=== PATIENT | female | born 1965 | race Caucasian/White ===

== ENCOUNTER 2019-01-16 16:54 | Emergency (ER) | payer OTHER ==
[~2019-01-16] VITALS: Ht 175.3 cm; Wt 86.2 kg
--- OUTSIDE RECORDS SUMMARY | ~2019-01-16 | XMS | Clinical Summary ---
Demographics + + + | Address | [address] | | | [place] [address] | + + + | Home Phone | | + + + | Preferred Language | Unknown | + + + | Marital Status | | + + + | Hoahaoism Affiliation | 1009 | + + + | Race | Unknown | + + + | Ethnic Group | Unknown | + + + Author + + + | Author | [facility] | + + + | Organization | [facility] | + + + | Address | Unknown | + + + | Phone | Unavailable | + + + Support + + + + + | Name | Relationship | Address | Phone | + + + + + | Ana M Ware | ECON | [address] | | | [place] | | [place] | | | | | [address] | | + + + + + | Detailed,Message | ECON | Unknown | | + + + + + Care Team Providers + +------+ + | Care Hull And Deck Remover Name | Role | Phone | + +------+ + | Nathan Peguero MD | PP | Unavailable | + +------+ + Allergies + + + + + + | Active Allergy | Reactions | Severity | Noted | Comments | | | | | Date | | + + + + + + | Aspirin | Nausea and Vomiting | Low | 12/06/19 | | | | | | 15 | | + + + + + + | Chlorhexidine | Hives | High | 03/07/20 | | | Gluconate | | | 15 | | + + + + + + | Codeine | Nausea and Vomiting | Low | 12/06/19 | | | | | | 15 | | + + + + + + | Hydroxyzine Hcl | Rash | Medium | 03/07/20 | | | | | | 15 | | + + + + + + | Iodinated Diagnostic | Hives | High | 02/19/20 | | | Agents | | | 15 | | + + + + + + | Povidone Iodine | Hives, Rash | High | 12/06/19 | | | | | | 15 | | + + + + + + | Penicillins | Hives, Rash | High | 12/06/19 | | | | | | 15 | | + + + + + + Current Medications + + +--------+---------+------+------+-------+ | Prescription | Sig. | Disp. | Refills | Star | End | Statu | | | | | | t | Date | s | | | | | | Date | | | + + +--------+---------+------+------+-------+ | pregabalin | Take 75 mg by mouth | | | | | Activ | | (LYRICA) 75 MG | 4 (four) times | | | | | e | | capsule | daily. 150mg | | | | | | + + +--------+---------+------+------+-------+ | levothyroxine | Take 112 mcg by | | | | | Activ | | (SYNTHROID) 112 MCG | mouth every morning | | | | | e | | tablet | before breakfast. | | | | | | + + +--------+---------+------+------+-------+ | diazepam (VALIUM) | Take 1 tablet by | 60 | 1 | 07/1 | | Activ | | 5 MG tablet | mouth every 6 (six) | tablet | | 4/20 | | e | | | hours as needed for | | | 15 | | | | | Muscle spasms. | | | | | | + + +--------+---------+------+------+-------+ | oxyCODONE | Take two tablets | 168 | 0 | 07/1 | | Activ | | (ROXICODONE) 15 MG | every four hours as | tablet | | 7/20 | | e | | immediate release | needed for pain. | | | 15 | | | | tablet | | | | | | | + + +--------+---------+------+------+-------+ | hydrOXYzine | | | | 02/19 | | Activ | | (ATARAX) 25 MG | | | | 3/ | | e | | tablet | | | | 15 | | | + + +--------+---------+------+------+-------+ Active Problems + + + | Problem | Noted Date | + + + | Lumbar stenosis | 01/21/2015 | + + + | Spondylolisthesis, acquired | 01/21/2015 | + + + Encounters +--------+ + + + + | Date | Type | Specialty | Care Team | Description | +--------+ + + + + | 12/18/ | Documentati | | Juan Antonio Burr MD | | | 2018 | on Only | | | | +--------+ + + + + from Last 3 Months Family History + + +------+ + | Medical History | Relation | Name | Comments | + + +------+ + | Aneurysm | | | | + + +------+ + | Cancer | | | | + + +------+ + | Heart disease | | | | + + +------+ + | Hypertension | | | | + + +------+ + | Other (see comments) | | | BRAIN TUMOR | + + +------+ + | Stroke | | | | + + +------+ + | Cancer | | | | + + +------+ + + +------+--------+ + | Relation | Name | Status | Comments | + +------+--------+ + Social History + +-------+ +--------+ + | Tobacco Use | Types | Packs/Day | Years | Date | | | | | Used | | + +-------+ +--------+ + | Former Smoker | | 1 | 15 | Quit: 10/20/2014 | + +-------+ +--------+ + + +---+---+---+ | Smokeless Tobacco: | | | | | Never Used | | | | + +---+---+---+ + + +---------+ + | Alcohol Use | Drinks/We | oz/Week | Comments | | | ek | | | + + +---------+ + | No | | | | + + +---------+ + + + + | Sex Assigned at | Date Recorded | | | | + + + | Not on file | | + + + Last Filed Vital Signs + + + + | Vital Sign | Reading | Time Taken | + + + + | Blood Pressure | 103/50 | 02/28/2015 10:51 AM PDT | + + + + | Pulse | 82 | 02/28/2015 10:51 AM PDT | + + + + | Temperature | 37 C (98.6 F) | 02/28/2015 10:51 AM PDT | + + + + | Respiratory Rate | 16 | 02/28/2015 10:51 AM PDT | + + + + | Oxygen Saturation | 96% | 02/28/2015 10:51 AM PDT | + + + + | Inhaled Oxygen | - | - | | Concentration | | | + + + + | Weight | 98 kg (216 lb) | 09/04/2015 1:11 PM PST | + + + + | Height | 176.5 cm (5' 9.5") | 09/04/2015 1:11 PM PST | + + + + | Body Mass Index | 31.44 | 09/04/2015 1:11 PM PST | + + + + Plan of Treatment + + + + + | Health Maintenance | Due Date | Last Done | Comments | + + + + + | Vaccine: | | | | | Dtap/Tdap/Td (1 - | 2 | | | | Tdap) | | | | + + + + + | Cervical Cancer | | | | | Screening (Pap) | 3 | | | + + + + + | Vaccine: Zoster (1 | | | | | of 2) | 3 | | | + + + + + | Vaccine: Influenza | | | | | (Season Ended) | 9 | | | + + + + + Implants + +------+--------+ +--------+--------+--------+ | Implanted | Type | Area | Manufacture | Device | Expira | Model | | | | | r | | tion | / | | | | | | Identi | Date | Serial | | | | | | fier | | / Lot | + +------+--------+ +--------+--------+--------+ | Graft 15cc [facility] - | | N/A: | LIFENET | | 10/29/ | [id number] | | [id number]: Qty: | | Spine | TISSUE - | | 2018 | T | | 1 on 2015 by Leno, | | Lumbar | LFTS | | | /05-19 | | MD Juan Antonio | | | | | | [phone] | | | | | | | | 6 / | + +------+--------+ +--------+--------+--------+ | Screw Mod Creo Amp 6.5x50 - | | N/A: | GLOBUS | | | 1067.1 | | [id number]: Qty: 2 on | | Spine | MEDICAL - | | | 650 / | | 2015 by Juan Antonio Burr, | | Lumbar | GLBU | | | / | | MD | | | | | | | + +------+--------+ +--------+--------+--------+ | Screw Mod Creo Amp 7.5x50 - | | N/A: | GLOBUS | | | 1067.1 | | [id number]: Qty: 2 on | | Spine | MEDICAL - | | | 750 / | | 2015 by Juan Antonio Burr, | | Lumbar | GLBU | | | / | | MD | | | | | | | + +------+--------+ +--------+--------+--------+ | Cap Ami Thrd Creo 5.5 - | | N/A: | GLOBUS | | | 1119.0 | | [id number]: Qty: 4 on | | Spine | MEDICAL - | | | 010 / | | 2015 by Juan Antonio Burr, | | Lumbar | GLBU | | | / | | MD | | | | | | | + +------+--------+ +--------+--------+--------+ | Maria Elenaip Carleenax Thrd Creo Amp | | N/A: | GLOBUS | | | 1119.0 | | 5.5 - [id number]: Qty: | | Spine | MEDICAL - | | | 110 / | | 4 on 2015 by Leno, | | Lumbar | GLBU | | | / | | MD Juan Antonio | | | | | | | + +------+--------+ +--------+--------+--------+ | Imp Spn Gurmeet Crv Ti 5.5x35mm - | | N/A: | GLOBUS | | | 1119.7 | | [id number]: Qty: 1 on | | Spine | MEDICAL - | | | 035 / | | 2015 by Leno, | | Lumbar | GLBU | | | / | | MD Juan Antonio | | | | | | | + +------+--------+ +--------+--------+--------+ | Spcr Rise [id number] 10-17mm 15d | | N/A: | GLOBUS | | | 193.14 | | - [id number]: Qty: 1 | | Spine | MEDICAL - | | | 2 / / | | on 2015 by Leno, | | Lumbar | GLBU | | | | | MD Juan Antonio | | | | | | | + +------+--------+ +--------+--------+--------+ | Imp Spn Gurmeet Crv Ti 5.5x40mm - | | N/A: | GLOBUS | | | 1119.7 | | [id number]: Qty: 2 on | | Spine | MEDICAL - | | | 040 / | | 2015 by Leno, | | Lumbar | GLBU | | | / | | MD Juan Antonio | | | | | | | + +------+--------+ +--------+--------+--------+ Results Not on filefrom Last 3 Months Insurance + +--------+ +------+-------+ + | Payer | Benefi | Subscriber | Type | Phone | Address | | | t Plan | ID | | | | | | / | | | | | | | Group | | | | | + +--------+ +------+-------+ + | MEDICAID | MEDICA | [id number] | | | [address] | | | ID | | | | [place] | | | [place] | | | | [address] | + +--------+ +------+-------+ + + +--------+ +--------+ + + | Guarantor Name | Accoun | Relation to | Date | Phone | Billing Address | | | t Type | Patient | of | | | | | | | | | | + +--------+ +--------+ + + | ANA M WARE | Person | Self [birth year] | Work: | [address] | | | mason/David | | 1965 | [phone] [place] | | | [place] | | | [address]: | [phone] | | | | | | | | | | | | [phone] | | | | | | | [phone] | | + +--------+ +--------+ + +
--- OUTSIDE RECORDS SUMMARY | ~2019-01-16 | XMS | Clinical Summary ---
Demographics + + + | Address | [address] | | | [place] [address] | + + + | Home Phone | | + + + | Preferred Language | Unknown | + + + | Marital Status | | + + + | Mormonism Affiliation | 1009 | + + + | Race | Unknown | + + + | Ethnic Group | Unknown | + + + Author + + + | Author | [facility] | | | and [place] | + + + | Organization | [facility] | | | and [place] | + + + | Address | Unknown | + + + | Phone | Unavailable | + + + Support + + + + + | Name | Relationship | Address | Phone | + + + + + | Brady Ware | ECON | [address] | | | | | [place] | | | | | [address] | | + + + + + Care Team Providers + +------+ + | Care Programming Engineer Name | Role | Phone | + +------+ + PP | Unavailable | + +------+ + Allergies + + + +--------+ + | Active Allergy | Reactions | Severity | Noted | Comments | | | | | Date | | + + + +--------+ + | Iodine | | | | | + + + +--------+ + | Penicillins | | | | | + + + +--------+ + Medications + + + +---------+------+------+-------+ | Medication | Sig | Dispensed | Refills | Star | End | Statu | | | | | | t | Date | s | | | | | | Date | | | + + + +---------+------+------+-------+ | oxyCODONE | 1/2 tablet every 2 | | 0 | 09/1 | | Activ | | (ROXICODONE) 15 mg | hours up to 5 times | | | 3/20 | | e | | immediate release | a day if needed | | | 12 | | | | tablet | | | | | | | + + + +---------+------+------+-------+ | eszopiclone | | | 0 | 09/1 | | Activ | | (ESZOPICLONE) 3 MG | | | | 3/20 | | e | | TABS | | | | 12 | | | + + + +---------+------+------+-------+ | peginterferon | inject 0.5 ml | | 0 | 09/1 | | Activ | | lissa-2a (PEGASYS) | subcutaneously once | | | 3/20 | | e | | 180 MCG/ML injection | weekly | | | 12 | | | + + + +---------+------+------+-------+ | ribavirin | Take 600 mg by mouth | | 0 | 09/1 | | Activ | | (RIBAPAK) 600 MG | 2 times daily. | | | 3/20 | | e | | tablet | | | | 12 | | | + + + +---------+------+------+-------+ | HYDROmorphone | Take 4 mg by mouth | | 0 | 09/1 | | Activ | | (DILAUDID) 4 MG | Twice daily as | | | 3/20 | | e | | tablet | needed. | | | 12 | | | + + + +---------+------+------+-------+ Active Problems + + + | Problem | Noted Date | + + + | HEPATITIS C | | + + + + + | Overview: ICD-10 Record update | + + + +---+ | DEGENERATIVE DISC DISEASE, LUMBAR SPINE | | + +---+ Social History + +-------+ +--------+------+ | Tobacco [...] on file | | + + + + + + + | Job Start Date | Occupation | Industry | + + + + | Not on file | Not on file | Not on file | + + + + + + + + | Travel History | Travel Start | Travel End | + + + + + + | No recent travel history available. | + + Last Filed Vital Signs + + + + | Vital Sign | Reading | Time Taken | + + + + | Blood Pressure | 124/90 | 05/27/2010 0000 PDT | + + + + | Pulse | - | - | + + + + | Temperature | - | - | + + + + | Respiratory Rate | - | - | + + + + | Oxygen Saturation | - | - | + + + + | Inhaled Oxygen | - | - | | Concentration | | | + + + + | Weight | 94.8 kg (209 lb) | 05/27/2010 PDT | + + + + | Height | 177.8 cm (5' 10") | 05/27/2010 PDT | + + + + | Body Mass Index | 29.99 | 05/27/2010 PDT | + + + + Plan of [...] | | + + + + + Results Not on filefrom Last 3 Months
--- OUTSIDE RECORDS SUMMARY | ~2019-01-16 | XMS | Encounter Summary ---
Demographics + + + | Address | [address] | | | [place] [address] | + + + | Home Phone | | + + + | Preferred Language | Unknown | + + + | Marital Status | | + + + | Jew Affiliation | 1009 | + + + | Race | Unknown | + + + | Ethnic Group | Unknown | + + + Author + + + | Author | [facility] | + + + | Organization | [facility] | + + + | Address [...] [place] | | | | | [address] | | + + + + + | Detailed,Message | ECON | Unknown | | + + + + + Care Team Providers + +------+ + | Care Salesperson Toy Trains And Accessories Name | Role | Phone | + +------+ + | Nathan Peguero MD | PCP | Unavailable | + +------+ + Encounter Details +--------+ + + + + | Date | Type | Department | Care Team | Description | +--------+ + + + + | 12/18/ | Documentati | [facility] | Juan Antonio Burr MD | | | 2019 | on Only | [facility] | [address] | | | | | [address] | [address] [place], [place] | | | | | [place], [place] | [address] | | | | | [address] | | | | | | [phone] | | | +--------+ + + + + Social History + +-------+ +--------+ + [...] on file | | + + + as of this encounter Plan of Treatment Not on fileas of this encounter Visit Diagnoses Not on filein this encounter"
--- OUTSIDE RECORDS SUMMARY | ~2019-01-16 | XMS | Clinical Summary ---
Demographics + + + | Address | [address] | | | [place] [address] | + + + | Home Phone | | + + + | Preferred Language | Unknown | + + + | Marital Status | | + + + | Religion Affiliation | 1009 | + + + | Race | Unknown | + + + | Ethnic Group | Unknown | + + + Author + + + | Author | [facility] | + + + | Organization | [facility] | + + + | Address [...] [place] | | | | | [address] | | + + + + + | Detailed,Message | ECON | Unknown | | + + + + + Care Team Providers + +------+ + | Care Sourcing Analyst Name | Role | Phone | + [...] | + +------+--------+ +--------+--------+--------+ | Graft 15cc [facility] - | | N/A: | LIFENET | | 10/29/ | [id number] | | [id number]: Qty: | | Spine | TISSUE - [...] GLOBUS | | | 1067.1 | | [id number]: Qty: 2 on | | Spine | MEDICAL - | | | 650 / | | 2015 by Juan Antonio Burr, | | Lumbar | GLBU | | | / | | MD | | | | | | | + +------+--------+ +--------+--------+--------+ | Screw Mod Creo Amp 7.5x50 - | | N/A: | GLOBUS | | | 1067.1 | | [id number]: Qty: 2 on | | Spine | MEDICAL - | | | 750 / | | 2015 by Juan Antonio Burr, | | Lumbar | GLBU | | | / | | MD | | | | | | | + +------+--------+ +--------+--------+--------+ | Cap Ami Thrd Creo 5.5 - | | N/A: | GLOBUS | | | 1119.0 | | [id number]: Qty: 4 on | | Spine | MEDICAL - | | | 010 / | | 2015 by Juan Antonio Burr, | | Lumbar | GLBU | | | / | | MD | | | | | | | + +------+--------+ +--------+--------+--------+ | Maria Elenaip Carleenax Thrd Creo Amp | | N/A: | GLOBUS | | | 1119.0 | | 5.5 - [id number]: Qty: | | Spine | MEDICAL - | | | 110 / | | 4 on 2015 by Leno, | | Lumbar | GLBU | | | / | | MD Juan Antonio | | | | | | | + +------+--------+ +--------+--------+--------+ | Imp Spn Gurmeet Crv Ti 5.5x35mm - | | N/A: | GLOBUS | | | 1119.7 | | [id number]: Qty: 1 on | | Spine | MEDICAL - | | | 035 / | | 2015 by Leno, | | Lumbar | GLBU | | | / | | MD Juan Antonio | | | | | | | + +------+--------+ +--------+--------+--------+ | Spcr Rise [id number] 10-17mm 15d | | N/A: | GLOBUS | | | 193.14 | | - [id number]: Qty: 1 | | Spine | MEDICAL - | | | 2 / / | | on 2015 by Leno, | | Lumbar | GLBU | | | | | MD Juan Antonio | | | | | | | + +------+--------+ +--------+--------+--------+ | Imp Spn Gurmeet Crv Ti 5.5x40mm - | | N/A: | GLOBUS | | | 1119.7 | | [id number]: Qty: 2 on | | Spine | [...] +------+-------+ + | MEDICAID | MEDICA | [id number] | | | [address] | | | ID | | | | [place] | | | [place] | | | | [address] | + +--------+ +------+-------+ + + +--------+ [...] | | | [place] | | | [address]: | [address] | | | | | | | | | | | | | [phone] | | | | | | | [phone] | | + +--------+ +--------+ + +
--- OUTSIDE RECORDS SUMMARY | ~2019-01-16 | XMS | Clinical Summary ---
Demographics + + + | Address | [address] | | | [place] [address] | + + + | Home Phone | | + + + | Preferred Language | Unknown | + + + | Marital Status | | + + + | Buddhism Affiliation | 1009 | + + + | Race | Unknown | + + + | Ethnic Group | Unknown | + + + Author + + + | Author | [facility] | | | and [place] | + + + | Organization | [facility] | | | and [...] [place] | | | | | [address] | | + + + + + Care Team Providers + +------+ + | Care Sailing Officer Name | Role | Phone | + [...]
--- OUTSIDE RECORDS SUMMARY | ~2019-01-16 | XMS | Encounter Summary ---
Demographics + + + | Address | [address] | | | [place] [address] | + + + | Home Phone | | + + + | Preferred Language | Unknown | + + + | Marital Status | | + + + | Latter Day Affiliation | 1009 | + + + | Race | Unknown | + + + | Ethnic Group | Unknown | + + + Author + + + | Author | [facility] | + + + | Organization | [facility] | + + + | Address [...] [place] | | | | | [address] | | + + + + + | Detailed,Message | ECON | Unknown | | + + + + + Care Team Providers + +------+ + | Care Spine Surgeon Name | Role | Phone | + +------+ + | Nathan Peguero MD | PCP | Unavailable | + +------+ + Encounter Details +--------+ + + + + | Date | Type | Department | Care Team | Description | +--------+ + + + + | 12/18/ | Documentati | [facility] | Juan Antonio Burr MD | | | 2019 | on Only | [facility] | [address] | | | | | [address] | [address] [place], [place] | | | | | [place], [place] | [address] | | | | | [address] | | | | | | [phone] | | | +--------+ + + + [...]
[~2019-01-16 16:54] MED LIST: ANAFRANIL75 MG PO; CLINDAMYCIN HC150 MG PO; CLOMIPRAMINE HC50 MG PO; DIAZEPAM5 MG PO; GABAPENTIN100 MG PO; HYDROMORPHONE HC4 MG PO; IBUPROFEN600 MG PO; IBUPROFEN800 MG PO; LEVOTHYROXINE75 MCG PO; LYRICA150 MG PO; LYRICA200 MG PO; MEDROL4 M1 PO; NICOTINE PATCH1 EAC1 TD; OXYCODON-ACETA1 EAC2 PO; OXYCODONE HCL15 MG PO; PERCOCET 5-3251 EACH PO; SYNTHROID25 MCG PO; TIZANIDINE HCL4 MG PO; TUMS300 MG PO; XANAX0.5 MG PO; ZOFRAN8 MG PO
--- OUTSIDE RECORDS SUMMARY | 2019-01-16 16:56 | XMS ---
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 Allen has no Care Guidelines for this patient. Bhavin VISIT COUNT (12 MO.) 1 ERIKA Anne TOTAL 1 NOTE: Visits indicate total known visits. ED/C VISIT TRACKING (12 MO.) 01/16/2019 16:54 ERIKA Grover [place] TYPE: Emergency COMPLAINT: - LEFT LEG SWELLING INPATIENT VISIT TRACKING (12 MO.) No inpatient visits to display in this time frame [id number]
[2019-01-16] MEDS ORDERED: IBUPROFEN600 MG PO (17:36)
== END 2019-01-16 18:00 | disposition home or self-care (01) ==
LOC: ED 16:54
DX: M71.22 Synovial cyst of popliteal space [Baker], left knee (principal); Z90.710 Acquired absence of both cervix and uterus; F17.200 Nicotine dependence, unspecified, uncomplicated; Z90.49 Acquired absence of other specified parts of digestive tract; Z88.0 Allergy status to penicillin; Z88.5 Allergy status to narcotic agent; Z88.6 Allergy status to analgesic agent; Z91.041 Radiographic dye allergy status; Z91.048 Other nonmedicinal substance allergy status; Z79.899 Other long term (current) drug therapy
CPT/HCPCS: 93971; 99283-25; J1885

== ENCOUNTER 2019-07-31 07:00 | Day surgery (SDC) | payer OTHER ==
[~2019-07-31] VITALS: Ht 175.3 cm; Wt 76.2 kg
--- NOTE | ~2019-07-31 | OR ---
[facility] [address] [place], [place] [address] Draft DATE OF OPERATION: 07/31/2019 SURGEON: Tim Sifuentes MD PREOPERATIVE DIAGNOSIS: Medial meniscal tear, left knee. POSTOPERATIVE DIAGNOSIS: Medial meniscal tear, left knee. PROCEDURE PERFORMED: Left knee arthroscopy with partial medial meniscectomy. ANESTHESIA: General. SPECIMENS AND COMPLICATIONS: There were no specimens or complications. TOURNIQUET TIME: About 20 minutes. WHAT WAS DONE: The patient was taken to the operating room. After anesthesia was induced and the airway secured, the left lower extremity was positioned, prepped and draped in a routine sterile fashion. A time-out was held with the staff, at which point, we confirmed the patient, the procedure, and the laterality. The leg was then exsanguinated with an Esmarch bandage. Pneumatic tourniquet was inflated to 300 mmHg. A superolateral and anterolateral portal were then created. The outflow cannula was inserted superolaterally and we got out about 35 mL of clear synovial fluid. The arthroscopic cannula was then inserted through a standard anterolateral portal. An anteromedial portal was created using transillumination and localization with a spinal needle. The suprapatellar pouch was unremarkable. The patellofemoral joint showed some degenerative change primarily on the patella, but given the fact she has had two previous patellar procedures, was in remarkably good shape. The medial recess was unremarkable. The medial compartment showed a very small posterior horn of the medial meniscal tear. There were also some areas of grade 2 to grade 3 chondral jacquard loom card changer the weightbearing portion of the medial femoral condyle. Intercondylar notch was unremarkable with an intact ACL. The lateral compartment was completely unremarkable as was the lateral recess. The scope was returned to the medial compartment. A basket forceps was PATIENT NAME: KEIKO FISH OPERATIVE REPORT DATE OF : 61 REPORT #: [id number] PHYSICIAN: TIM SIFUENTES MD PCP: ROB GEIGER MD REPORT IS CONFIDENTIAL AND NOT TO BE RELEASED WITHOUT AUTHORIZATION [facility] [address] [place], [place] [address] Draft introduced and the meniscus tear was completed. We then introduced a 4 mm shaver and gently debrided the edge of the meniscectomy and removed some loose discharge of articular cartilage off the weightbearing portion of the medial femoral condyle. The knee was copiously irrigated and drained. The portals were closed. Sterile dressings applied. The patient is awakened in the recovery room where she arrived in stable condition. Counts were correct and antibiotic protocols were followed. Tim Sifuentes MD WFB/MODL /[id number] Copies: ~ PATIENT NAME: KEIKO FISH OPERATIVE REPORT DATE OF : 61 REPORT #: [id number] PHYSICIAN: TIM SIFUENTES MD PCP: ROB GEIGER MD REPORT IS CONFIDENTIAL AND NOT TO BE RELEASED WITHOUT AUTHORIZATION
[~2019-07-31 07:00] MED LIST changes: +BACLOFEN10 MG PO; +OXYCODONE HCL10 MG PO; +SYNTHROID112 MCG PO
--- NOTE | 2019-07-31 11:53 | NUR ---
07/31/19 1153 Lenora Tristan 1123 PT ARRIVED IN PACU AWAKE WITH OPA IN PLACE. 1125 OPA REMOVED. REORIENTED PT TO PLACE AND TIME. 1135 C/O L KNEE PAIN 7/10. FENTANYL 50MCG GIVEN IVP. 1140 NO CHANGE IN PAIN LEVEL. FENTANYL 50MCG GIVEN IVP. 1148 PAIN DOWN TO 4/10. FENTANYL 50MCG GIVEN IVP. L KNEE ELEVATED AND ICE PLACED. 1150 TAKING SIPS OF WATER AND DEEP BREATHING.
--- NOTE | 2019-07-31 12:21 | NUR ---
PT IS BACK TO DS FROM PACU. SHE HAS ALREADY BEEN UP TO USE THE RESTROOM. SHE IS TOLERATING LIQUIDS AND FOOD. CALL LIGHT WITHIN REACH. NO ADDITIONAL NEEDS AT THIS TIME.
--- NOTE | 2019-07-31 13:30 | NUR ---
LE 1315: PATIENT IS STANDING OUTSIDE OF HER ROOM, DEMANDING SOMEONE BRING HER HER PAPERWORK TO LEAVE OR SHE IS GOING TO PULL HER OWN IV OUT AND WALK OUT OF HERE. PATIENT IS GETTING DRESSED AND RN REMOVES HER IV WHILE SHE IS DOING THIS. PATIENT AGREES TO WAIT FOR DISCHARGE PAPERWORK. DISCHARGE PAPERWORK IS GIVEN TO PATIENT WHILE SHE IS SITTING IN THE WHEELCHAIR IN THE HALLWAY WITH HER DAUGHTER STANDING NEARBY. PATIENT VERBALIZES UNDERSTANDING OF DISCHARGE AND SHE APOLOGIZES FOR "BEING IN A HURRY." PATIENT STATES, "I NEED A SMOKE."
== END 2019-07-31 13:25 | disposition home or self-care (01) ==
LOC: DSVR 07:00 → DS 07:00 → OPS 07:00 → DS 07:45 → OPS 13:25
PROVIDERS: Orthopaedic Surgery
PROC: 0SBD4ZZ Excision of Left Knee Joint, Percutaneous Endoscopic Approach (ICD-10-PCS; principal; 2019-07-31 07:45)
DX: S83.242A Other tear of medial meniscus, current injury, left knee, initial encounter (principal); M54.2 Cervicalgia; G89.29 Other chronic pain; G62.9 Polyneuropathy, unspecified; F17.210 Nicotine dependence, cigarettes, uncomplicated; F41.9 Anxiety disorder, unspecified; K21.9 Gastro-esophageal reflux disease without esophagitis; K76.9 Liver disease, unspecified; C73 Malignant neoplasm of thyroid gland; B19.20 Unspecified viral hepatitis C without hepatic coma; Z88.6 Allergy status to analgesic agent; Z88.8 Allergy status to other drugs, medicaments and biological substances; Z91.041 Radiographic dye allergy status; Z98.1 Arthrodesis status; Z79.899 Other long term (current) drug therapy
CPT/HCPCS: J0690; J1100; J1885; J2405; J2704; J3010; J3301; J7121

== ENCOUNTER 2020-03-16 20:09 | Emergency (ER) | payer BC ==
[~2020-03-16] VITALS: Ht 175.3 cm; Wt 76.2 kg
--- OUTSIDE RECORDS SUMMARY | ~2020-03-16 | XMS | Encounter Summary ---
Demographics + + + | Address | [address] | | | [place] [address] | + + + | Home Phone | | + + + | Preferred Language | Unknown | + + + | Marital Status | | + + + | Scientology Affiliation | 1009 | + + + | Race | Unknown | + + + | Ethnic Group | Unknown | + + + Author + + + | Author | [facility] | | | and [place] | + + + | Organization | [facility] | | | and [place] | + + + | Address | Unknown | + + + | Phone | Unavailable | + + + Support + + + + + | Name | Relationship | Address | Phone | + + + + + | Brady M Jeanie | ECON | [address] | | | | | [place], [place] | | | | | [address] | | + + + + + Care Team Providers + +------+ + | Care Director [employer] Name | Role | Phone | + +------+ + PCP | Unavailable | + +------+ + Encounter Details +--------+ + + + + | Date | Type | Department | Care Team | Description | +--------+ + + + + | 05/03/ | Abstract | [facility] | [facility] | | | 2011 | | Conversion Location | SR | | | | | [address] | | | | | | [place] | | | | | | [address] | | | | | | [phone] | | | +--------+ + + + + Social History + +-------+ +--------+------+ | Tobacco Use | Types | Packs/Day | Years | Date | | | | | Used | | + +-------+ +--------+------+ | Never Assessed | | | | | + +-------+ +--------+------+ + + + | Sex Assigned at | Date Recorded | | | | + + + | Not on file | | + + + documented as of this encounter Last Filed Vital Signs + + + + + | Vital Sign | Reading | Time Taken | Comments | + + + + + | Blood Pressure | 124/90 | 05/27/2010 12:00 AM | | | | | PDT | | + + + + + | Pulse | - | - | | + + + + + | Temperature | - | - | | + + + + + | Respiratory Rate | - | - | | + + + + + | Oxygen Saturation | - | - | | + + + + + | Inhaled Oxygen | - | - | | | Concentration | | | | + + + + + | Weight | 94.8 kg (209 lb) | 05/27/2010 12:00 AM | | | | | PDT | | + + + + + | Height | 177.8 cm (5' 10") | 05/27/2010 12:00 AM | | | | | PDT | | + + + + + | Body Mass Index | 29.99 | 05/27/2010 12:00 AM | | | | | PDT | | + + + + + documented in this encounter Plan of Treatment Not on filedocumented as of this encounter Visit Diagnoses Not on filedocumented in this encounter
--- OUTSIDE RECORDS SUMMARY | ~2020-03-16 | XMS | Encounter Summary ---
Demographics + + + | Address | [address] | | | [place] [address] | + + + | Home Phone | | + + + | Preferred Language | Unknown | + + + | Marital Status | | + + + | Confucianist Affiliation | 1009 | + + + | Race | Unknown | + + + | Ethnic Group | Unknown | + + + Author + + + | Author | [facility] | | | and [place] | + + + | Organization | [facility] | | | and [place] | + + + | Address | Unknown | + + + | Phone | Unavailable | + + + Support + + + + + | Name | Relationship | Address | Phone | + + + + + | Bardy M Jeanie | ECON | [address] | | | | | [place], [place] | | | | | [address] | | + + + + + Care Team Providers + +------+ + | Care It Communications Manager Name | Role | Phone | + +------+ + PCP | Unavailable | + +------+ + Encounter Details +--------+ + + + + | Date | Type | Department | Care Team | Description | +--------+ + + + + | 02/12/ | Hospital | [facility] | Conversion | Pain | | 2014 | Encounter | CONVERSION DEP [address] | Transaction, | | | | | DESTINY MCFADDEN | Provider Unknown | | | | | [place] | [phone] | | | | | [address] | | | | | | [phone] | | | +--------+ + + + [...] + + documented as of this encounter Medications at Time of Discharge + + + +---------+ + + | Medication | Sig | Dispensed | Refills | Start | End Date | | | | | | Date | | + + + +---------+ + + | eszopiclone | | | 0 | 05/04/20 | | | (ESZOPICLONE) 3 MG | | | | 12 | | | TABS | | | | | | + + + +---------+ + + | HYDROmorphone | Take 4 mg by mouth | | 0 | 05/04/20 | | | (DILAUDID) 4 MG | Twice daily as | | | 12 | | | tablet | needed. | | | | | + + + +---------+ + + | oxyCODONE | 1/2 tablet every 2 | | 0 | 05/04/20 | | | (ROXICODONE) 15 mg | hours up to 5 times | | | 12 | | | immediate release | a day if needed | | | | | | tablet | | | | | | + + + +---------+ + + | peginterferon | inject 0.5 ml | | 0 | 05/04/20 | | | lissa-2a (PEGASYS) | subcutaneously once | | | 12 | | | 180 MCG/ML injection | weekly | | | | | + + + +---------+ + + | ribavirin | Take 600 mg by mouth | | 0 | 05/04/20 | | | (RIBAPAK) 600 MG | 2 times daily. | | | 12 | | | tablet | | | | | | + + + +---------+ + + documented as of this encounter Plan of Treatment Not on filedocumented as of this encounter Procedures + +--------+ + + + | Procedure Name | Priori | Date/Time | Associated Diagnosis | Comments | | | ty | | | | + +--------+ + + + | XR LUMBAR SPINE 4 + | Routin | 01/15/2015 | | Results for this | | VW | e | 11:49 PM | | procedure are in the | | | | PDT | | results section. | + +--------+ + + + documented in this encounter Results XR Lumbar Spine 4 + Vw (01/15/2015 11:49 PM PDT) + + | Specimen | + + | | + + + + + | Narrative | Performed At | + + + | This is a non-reportable procedure without a radiologist report and | | | is used for image storage only | | + + + + + | Procedure Note | + + | Shmuel Walsh Conversion - 04/06/2019 6:12 AM PDT This is a non-reportable procedure | | without a radiologist report and isused for image storage only | + + documented in this encounter Visit Diagnoses + + | Diagnosis | + + | Pain Generalized pain | + + documented in this encounter"
--- OUTSIDE RECORDS SUMMARY | ~2020-03-16 | XMS | Encounter Summary ---
Demographics + + + | Address | [address] | | | [place] [address] | + + + | Home Phone | | + + + | Preferred Language | Unknown | + + + | Marital Status | | + + + | Episcopal Affiliation | 1009 | + + + | Race | Unknown | + + + | Ethnic Group | Unknown | + + + Author + + + | Author | [facility] | | | and [place] | + + + | Organization | [facility] | | | and [place] | + + + | Address | Unknown | + + + | Phone | Unavailable | + + + Support + + + + + | Name | Relationship | Address | Phone | + + + + + | Brady Ware | ECON | [address] | | | | | [place], [place] | | | | | [address] | | + + + + + Care Team Providers + +------+ + | Care Substation Technician Name | Role | Phone | + +------+ + PCP | Unavailable | + +------+ + Encounter Details +--------+ + + + + | Date | Type | Department | Care Team | Description | +--------+ + + + + | / | [facility] | [facility] | Murali Vanegas | | | 2007 | Encounter | MED CTR [facility] | MD [address] | | | | | [address] | [address] | | | | | [place] [id number] | [place] [address] | | | | | [phone] | [phone] | | | | | | | | +--------+ + + [...] Visit Diagnoses Not on filedocumented in this encounter"
--- OUTSIDE RECORDS SUMMARY | ~2020-03-16 | XMS | Clinical Summary ---
Demographics + + + | Address | [address] | | | [place] [address] | + + + | Home Phone | | + + + | Preferred Language | Unknown | + + + | Marital Status | | + + + | Jainism Affiliation | 1009 | + + + | Race | Unknown | + + + | Ethnic Group | Unknown | + + + Author + + + | Author | [facility] | | | and [place] | + + + | Organization | [facility] | | | and [place] | + + + | Address | Unknown | + + + | Phone | Unavailable | + + + Support + + + + + | Name | Relationship | Address | Phone | + + + + + | Brady Ware | ECON | [address] | | | | | [place], [place] | | | | | [address] | | + + + + + Care Team Providers + +------+ + | Care Executive Receptionist Name | Role | Phone | + +------+ + | Nathan Peguero MD | PCP | | + +------+ + Allergies + + + + + + | Active Allergy | Reactions | Severity | Noted | Comments | | | | | Date | | + + + + + + | Aspirin | Nausea And Vomiting | Low | 04/16/20 | | | | | | 15 | | + + + + + + | Chlorhexidine | Hives | High | 03/07/20 | | | | | | 15 | | + + + + + + | Codeine | Nausea And Vomiting | Low | 12/06/19 | | | | | | 15 | | + + + + + + | Hydroxyzine | Rash | Medium | 03/07/20 | | | | | | 15 | | + + + + + + | Iodinated Diagnostic | Hives | High | 02/19/20 | | | Agents | | | 15 | | + + + + + + | Iodine | | | | | + + + + + + | Penicillins | Hives, Rash | High | 12/06/19 | | | | | | 15 | | + + + + + + | Povidone Iodine | Hives, Rash | High | 12/06/19 | | | | | | 15 | | + + + + + + Medications + + + +---------+------+------+-------+ | [...] | | + + + +---------+------+------+-------+ | baclofen | | | 0 | 06/1 | | Activ | | (LIORESAL) 10 mg | | | | 6/20 | | e | | tablet | | | | 19 | | | + + + +---------+------+------+-------+ | diazePAM (VALIUM) | Take 1 tablet by | | 0 | 07/1 | | Activ | | 5 mg tablet | mouth every 6 (six) | | | 4/20 | | e | | | hours as needed for | | | 15 | | | | | Muscle spasms. | | | | | | + + + +---------+------+------+-------+ | hydrOXYzine | | | 0 | 07/1 | | Activ | | hydrochloride | | | | 3/20 | | e | | (ATARAX) 25 mg | | | | 15 | | | | tablet | | | | | | | + + + +---------+------+------+-------+ | levothyroxine | Take 112 mcg by | | 0 | | | Activ | | (SYNTHROID) 112 mcg | mouth every morning | | | | | e | | tablet | before breakfast. | | | | | | + + + +---------+------+------+-------+ | pregabalin | Take 75 mg by mouth | | 0 | | | Activ | | (LYRICA) 75 mg | 4 (four) times | | | | | e | | capsule | daily. 150mg | | | | | | + + + +---------+------+------+-------+ | oxyCODONE | Take two tablets | | 0 | 07/1 | | Activ | | (ROXICODONE) 15 mg | every four hours as | | | 7/20 | | e | | immediate release | needed for pain. | | | 15 | | | | tablet | | | | | | | + + + +---------+------+------+-------+ | oxyCODONE 10 MG | take 1-2 tablets | | 0 | 06/1 | | Activ | | TABS | every 4 to 6 hours | | | 9/20 | | e | | | if needed | | | 19 | | | + + + +---------+------+------+-------+ Active Problems + + + | Problem | Noted Date | + + + | Cervical radiculopathy | 02/16/2019 | + + + | Spinal stenosis of cervical region | 02/16/2019 | + + + | Degeneration of intervertebral disc of cervical region | 02/16/2019 | + + + | Lumbar stenosis | 01/21/2015 | + + + | Spondylolisthesis, acquired | 01/21/2015 | + + + | HEPATITIS C | | + + + + + | Overview: ICD-10 Record update | + + + +---+ | DEGENERATIVE DISC DISEASE, LUMBAR SPINE | | + +---+ Family History + + +------+ + | Medical History | Relation | Name | Comments | + + +------+ + | Aneurysm | Other | | | + + +------+ + | Cancer | Other | | | + + +------+ + | Heart disease | Other | | | + + +------+ + | Hypertension | Other | | | + + +------+ + | Other (see comment) | Other | | Other (see comments) - BRAIN TUMOR | + + +------+ + | Stroke | Other | | | + + +------+ + | Cancer | Other | | | + + +------+ + + +------+--------+ + | Relation | Name | Status | Comments | + +------+--------+ + | Other | | | | + +------+--------+ + | Other | | | | + +------+--------+ + | Other | | | | + +------+--------+ + | Other | | | | + +------+--------+ + | Other | | | | + +------+--------+ + | Other | | | | + +------+--------+ + | Other | | | | + +------+--------+ + | Other | | | | + +------+--------+ + | Other | | | | + +------+--------+ + Social History + +-------+ +--------+------+ | Tobacco Use | Types | Packs/Day | Years | Date | | | | | Used | | + +-------+ +--------+------+ | Former Smoker | | 1 | | | + +-------+ +--------+------+ + + + | Sex Assigned at | Date Recorded | | | | + + + | Not on file | | + + + Last Filed Vital Signs + + + + + | Vital Sign | Reading | Time Taken | Comments | + + + + + | Blood Pressure | 113/65 | 02/16/2019 3:05 PM | | | | | PDT | | + + + + + | Pulse | 65 | 02/16/2019 3:05 PM | | | | | PDT | | + + + + + | Temperature | - | - | | + + + + + | Respiratory Rate | 16 | 02/16/2019 3:05 PM | | | | | PDT | | + + + + + | Oxygen Saturation | - | - | | + + + + + | Inhaled Oxygen | - | - | | | Concentration | | | | + + + + + | Weight | 77 kg (169 lb 12.8 | 02/16/2019 3:05 PM | | | | oz) | PDT | | + + + + + | Height | 175.3 cm (5' 9") | 02/16/2019 3:05 PM | | | | | PDT | | + + + + + | Body Mass Index | 25.08 | 02/16/2019 3:05 PM | | | | | PDT | | + + + + + Plan of Treatment + + + + + | Health Maintenance | Due Date | Last | Comments | | | | Done | | + + + + + | Med Mgmt: TSH | | | | | | 3 | | | + + + + + | Medication | | | | | Management | 3 | | | + + + + + | Vaccine: | | | | | Dtap/Tdap/Td (1 - | 2 | | | | Tdap) | | | | + + + + + | Cervical Cancer | | | | | Screening (Pap) | 3 | | | + + + + + | Colorectal Cancer | | | | | Screening | 3 | | | | (Colonoscopy) | | | | + + + + + | Vaccine: Zoster (1 | | | | | of 2) | 3 | | | + + + + + | Med Mgmt: Cr | | 02/19/20 | | | | 6 | 15 | | + + + + + | Med Mgmt: eGFR | | 02/19/20 | | | | 6 | 15 | | + + + + + | Breast Cancer | | | | | Screening | 8 | | | + + + + + | Vaccine: Influenza | | | | | (#1) | 0 | | | + + + + + | Hepatitis C | Completed | 05/24/20 | | | Screening | | 15 | | + + + + + Implants + +------+--------+ +--------+--------+--------+ | Implanted | Type | Area | Manufacture | Device | Shelf | Model | | | | | r | | Expira | / | | | | | | Identi | tion | Serial | | | | | | fier | Date | / Lot | + +------+--------+ +--------+--------+--------+ | Graft 15cc Chamber Can/[facility] - | | N/A: | LIFENET | | 10/29/ | [id number] | | [id number]: Qty: | | Spine | TISSUE - [...] GLOBUS | | | 1067.1 | | [id number]: Qty: 2 on | | Spine | MEDICAL - | | | 650 / | | 2015 by Juan Antonio Burr, | | Lumbar | GLBU | | | / | | MD | | | | | | | + +------+--------+ +--------+--------+--------+ | Screw Mod Creo Amp 7.5x50 - | | N/A: | GLOBUS | | | 1067.1 | | [id number]: Qty: 2 on | | Spine | MEDICAL - | | | 750 / | | 2015 by Juan Antonio Burr, | | Lumbar | GLBU | | | / | | MD | | | | | | | + +------+--------+ +--------+--------+--------+ | Cap Ami Thrd Creo 5.5 - | | N/A: | GLOBUS | | | 1119.0 | | [id number]: Qty: 4 on | | Spine | MEDICAL - | | | 010 / | | 2015 by Juan Antonio Burr, | | Lumbar | GLBU | | | / | | | | | | | | | + +------+--------+ +--------+--------+--------+ | Tulip Polyax Thrd Creo Amp | | N/A: | GLOBUS | | | 1119.0 | | 5.5 - [id number]: Qty: | | Spine | MEDICAL - | | | 110 / | | 4 on 2015 by Leno, | | Lumbar | GLBU | | | / | | MD Juan Antonio | | | | | | | + +------+--------+ +--------+--------+--------+ | Imp Spn Gurmeet Crv Ti 5.5x35mm - | | N/A: | GLOBUS | | | 1119.7 | | [id number]: Qty: 1 on | | Spine | MEDICAL - | | | 035 / | | 2015 by Leno, | | Lumbar | GLBU | | | / | | MD Juan Antonio | | | | | | | + +------+--------+ +--------+--------+--------+ | Spcr Rise [id number] 10-17mm 15d | | N/A: | GLOBUS | | | 193.14 | | - [id number]: Qty: 1 | | Spine | MEDICAL - | | | 2 / / | | on 2015 by Leno, | | Lumbar | GLBU | | | | | MD Juan Antonio | | | | | | | + +------+--------+ +--------+--------+--------+ | Imp Spn Gurmeet Crv Ti 5.5x40mm - | | N/A: | GLOBUS | | | 1119.7 | | [id number]: Qty: 2 on | | Spine | MEDICAL - | | | 040 / | | 2015 by Leno, | | Lumbar | GLBU | | | / | | MD Juan Antonio | | | | | | | + +------+--------+ +--------+--------+--------+ Results Not on filefrom Last 3 Months
--- OUTSIDE RECORDS SUMMARY | ~2020-03-16 | XMS | Encounter Summary ---
Demographics + + + | Address | [address] | | | [place] [address] | + + + | Home Phone | | + + + | Preferred Language | Unknown | + + + | Marital Status | | + + + | Oriental Orthodox Affiliation | 1009 | + + + | Race | Unknown | + + + | Ethnic Group | Unknown | + + + Author + + + | Author | [facility] | | | and [place] | + + + | Organization | [facility] | | | and [place] | + + + | Address | Unknown | + + + | Phone | Unavailable | + + + Support + + + + + | Name | Relationship | Address | Phone | + + + + + | Brady M Jeanie | ECON | [address] | | | | | [place], [place] | | | | | [address] | | + + + + + Care Team Providers + +------+ + | Care Smoke Room Operator Name | Role | Phone | + +------+ + PCP | Unavailable | + +------+ + Encounter Details +--------+ + + + + | Date | Type | Department | Care Team | Description | +--------+ + + + + | 04/10/ | Hospital | [facility] | Conversion | S/P lumbar fusion | | 2014 | Encounter | [facility] | Transaction, | | | | | [address] | Provider Unknown | | | | | [address] [place], [place] | [phone] | | | | | [address] | | | | | | [phone] | | | +--------+ + + + [...] + + + +---------+ + + | diazePAM (VALIUM) | Take 1 tablet by | | 0 | 03/04/20 | | | 5 mg tablet | mouth every 6 (six) | | | 15 | | | | hours as needed for | | | | | | | Muscle spasms. | | | | | + + [...] + + + +---------+ + + | hydrOXYzine | | | 0 | 03/03/20 | | | hydrochloride | | | | 15 | | | (ATARAX) 25 mg | | | | | | | tablet | | | | | | + + + +---------+ + + | oxyCODONE | Take two tablets | | 0 | 03/07/20 | | | (ROXICODONE) 15 mg | every four hours as | | | 15 | | | immediate release | needed for pain. | | | | | | tablet [...] + + + | XR LUMBAR SPINE 1 VW | Routin | 04/10/2015 | | Results for this | | | e | 1:47 PM | | procedure are in the | | | | PDT | | results section. | + +--------+ + + + documented in this encounter Results XR Lumbar Spine 1 View (04/10/2015 1:47 PM PDT) + + | Specimen | + + | | + + + + + | Impressions | Performed At | + + + | 1. Stable appearance of a more recent posterior and anterior | | | fusion of L3-L4. 2. Removal of prior connecting rods of prior | | | fusion surgery at L4-L4-L5 and L5-S1. | | + + + + + + | Narrative | Performed At | + + + | [facility] XR LUMBAR SPINE 1 VIEW 04/10/2015 1:47 PM | | | History: 50 years. Female. Follow-up for lumbar fusion with | | | laminectomy. Technique: Standing lateral view of the lumbar | | | spine in neutral position. Comparison exam: 01/15/15 | | | Findings: Pedicle screws of L3, L4, L5 and S1 are visualized. | | | Pedicle screws of L3 are new as compared with 01/15/15. Posterior | | | connecting rods are visualized between the L3 and L4 pedicle screws. | | | Previous posterior vertical connecting rods from L3 through S1 | | | have been removed. A metallic disc spacers visualized at L3-L4, in | | | good position. There is good alignment of all lumbar vertebral | | | bodies. | | + + + + + | Procedure Note | + + | Shmuel Walsh Conversion - 04/06/2019 6:12 AM PDT [facility] LUMBAR SPINE 1 | | VIEW04/10/2015 1:47 PM History: 50 years. Female. Follow-up for lumbar fusion with | | laminectomy. Technique: Standing lateral view of the lumbar spine in neutral position. | | Comparison exam: 01/15/15 Findings: Pedicle screws of L3, L4, L5 and S1 are | | visualized. Pedicle screws of L3 are new as compared with 01/15/15. Posterior | | connecting rods are visualized between the L3 and L4 pedicle screws. Previous posterior | | vertical connecting rods from L3 through S1 have been removed. A metallic disc spacers | | visualized at L3-L4, in good position. There is good alignment of all lumbar vertebral | | bodies. IMPRESSION: 1. Stable appearance of a more recent posterior and anterior | | fusion of L3-L4.2. Removal of prior connecting rods of prior fusion surgery at L4-L4-L5 | | and L5-S1. | |vertical connecting rods from L3 | |through S1 have been removed. | | | |A metallic disc spacers visualized at L3-L4, in good position. There is good alignment of all lumbar vertebral bodies. | | | |IMPRESSION: | |1. Stable appearance of a more recent posterior and anterior fusion of L3-L4. | |2. Removal of prior connecting rods of prior fusion surgery at L4-L4-L5 and L5-S1. | | | | | + + documented in this encounter Visit Diagnoses + + | Diagnosis | + + | S/P lumbar fusion Arthrodesis status | + + documented in this encounter"
--- OUTSIDE RECORDS SUMMARY | ~2020-03-16 | XMS | Encounter Summary ---
Demographics + + + | Address | [address] | | | [place] [address] | + + + | Home Phone | | + + + | Preferred Language | Unknown | + + + | Marital Status | | + + + | Denominational Affiliation | 1009 | + + + | Race | Unknown | + + + | Ethnic Group | Unknown | + + + Author + + + | Author | [facility] | | | and [place] | + + + | Organization | [facility] | | | and [place] [...] [place], [place] | | | | | [address] | | + + + + + Care Team Providers + +------+ + | Care Rubber Goods Assembler Name | Role | Phone | + +------+ + PCP | Unavailable | + +------+ + Encounter Details +--------+ + + + + | Date | Type | Department | Care Team | Description | +--------+ + + + + | 05/27/ | Hospital | [facility] | [facility], | | | 2009 | Encounter | [facility] | ANGI [address] | | | | | [address] | [address] | | | | | [place] | [place] | | | | | [address] | [address] | | | | | [phone] | | | +--------+ + + + [...]
--- OUTSIDE RECORDS SUMMARY | ~2020-03-16 | XMS | Encounter Summary ---
Demographics + + + | Address | [address] | | | [place] [address] | + + + | Home Phone | | + + + | Preferred Language | Unknown | + + + | Marital Status | | + + + | Confucianist Affiliation | 1009 | + + + | Race | Unknown | + + + | Ethnic Group | Unknown | + + + Author + + + | Author | [facility] | | | and [place] | + + + | Organization | [facility] | | | and [place] | + + + | Address | Unknown | + + + | Phone | Unavailable | + + + Support + + + + + | Name | Relationship | Address | Phone | + + + + + | Brady M Jeanie | ECON | [address] | | | | | [place], [place] | | | | | [address] | | + + + + + Care Team Providers + +------+ + | Care Director Game Name | Role | Phone | + +------+ + PCP | Unavailable | + +------+ + Encounter Details +--------+ + + + + | Date | Type | Department | Care Team | Description | +--------+ + + + + | 06/05/ | Hospital | [facility] | Conversion | Pain | | 2013 | Encounter | CONVERSION DEP [address] | Transaction, | | | | | [address]IN[address] MCFADDEN | Provider Unknown | | | | | [place] | [phone] | | | | | [address] | | | | | | [phone] | | | +--------+ + + + [...] | + +--------+ + + + | CT LUMBAR SPINE WO | Routin | 05/25/2014 | | Results for this | | CONTRAST | e | 11:43 PM | | procedure are in the | | | | PDT | | results section. | + +--------+ + + + documented in this encounter Results CT Lumbar Spine wo Contrast (05/25/2014 11:43 PM PDT) + + | Specimen | + + | | + + + + + | Narrative | Performed At | + + + | This is a non-reportable procedure without a radiologist report and | | | is used for image storage only | | + + + + + | Procedure Note | + + | NicoShmuel Conversion - 04/06/2019 5:18 PM PDT This is a non-reportable procedure | | without a radiologist report and isused for image storage only | + + documented in this encounter Visit Diagnoses + + | Diagnosis | + + | Pain Generalized pain | + + documented in this encounter"
--- OUTSIDE RECORDS SUMMARY | ~2020-03-16 | XMS | Encounter Summary ---
Demographics + + + | Address | [address] | | | [place] [address] | + + + | Home Phone | | + + + | Preferred Language | Unknown | + + + | Marital Status | | + + + | Presybeterian Affiliation | 1009 | + + + | Race | Unknown | + + + | Ethnic Group | Unknown | + + + Author + + + | Author | [facility] | | | and [place] | + + + | Organization | [facility] | | | and [place] [...] [place], [place] | | | | | [address] | | + + + + + Care Team Providers + +------+ + | Care Presiding Judge Name | Role | Phone | + +------+ + PCP | Unavailable | + +------+ + Encounter Details +--------+ + + + + | Date | Type | Department | Care Team | Description | +--------+ + + + + | 06/05/ | Hospital | [facility] | Conversion | S/P lumbar spinal | | 2014 | Encounter | [facility] | Transaction, | fusion | | | | [address] | Provider Unknown | | | | | [address] [place], [place] | [phone] | | | | | [address] | | | | | | [phone] | | | +--------+ + + + [...] LUMBAR SPINE 1 VW | Routin | 06/05/2015 | | Results for this | | | e | 11:28 AM | | procedure are in the | | | | PDT | | results section. | + +--------+ + + + documented in this encounter Results XR Lumbar Spine 1 View (06/05/2015 11:28 AM PDT) + + | Specimen | + + | | + + + + + | Impressions | Performed At | + + + | 1. Postoperative findings as above without orthopedic hardware | | | failure complication. 2. No malalignment or fracture | | | | | + + + + + + | Narrative | Performed At | + + + | [facility] XR LUMBAR SPINE 1 VIEW 06/05/2015 11:28 AM | | | HISTORY: Status post lumbar spine fusion. TECHNIQUE: Lateral | | | view of the lumbar spine. COMPARISON: Lumbar spine radiographs | | | dated 04/10/2015. FINDINGS: There is unchanged evidence of | | | anterior and posterior fusion at L3-L4, with an intact disc spacer | | | noted at this level, and intact hardware found. Bilateral posterior | | | pedicle screws are again seen at L5 and S1. Disc spacers at L4-L5 and | | | L5-S1 are faintly visualized. The alignment is intact. Laminectomy | | | defects are again noted from L3 to L5. Atherosclerotic calcifications | | | are seen in the abdominal aorta. A surgical clip is seen in the | | | pelvis. | | + + + + + | Procedure Note | + + | Nico, Rad Conversion - 04/06/2019 6:12 AM PDT [facility] LUMBAR SPINE 1 | | VIEW06/05/2015 11:28 AM HISTORY:Status post lumbar spine fusion. TECHNIQUE:Lateral view | | of the lumbar spine. COMPARISON:Lumbar spine radiographs dated 04/10/2015. FINDINGS:There | | is unchanged evidence of anterior and posterior fusion at L3-L4, with an intact disc | | spacer noted at this level, and intact hardware found. Bilateral posterior pedicle | | screws are again seen at L5 and S1. Disc spacers at L4-L5 and L5-S1 are faintly | | visualized. The alignment is intact. Laminectomy defects are again noted from L3 to L5. | | Atherosclerotic calcifications are seen in the abdominal aorta. A surgical clip is seen | | in the pelvis. IMPRESSION: 1. Postoperative findings as above without orthopedic | | hardware failure complication. 2. No malalignment or fracture | |Lumbar spine radiographs dated 04/10/2015. | | | |FINDINGS: | |There is unchanged evidence of anterior and posterior fusion at L3-L4, with an intact disc spacer noted at this level, and intact hardware found. Bilateral posterior pedicle screws ar e again seen at L5 and S1. Disc | |spacers at L4-L5 and L5-S1 are faintly | |visualized. The alignment is intact. Laminectomy defects are again noted from L3 to L5. Ath erosclerotic calcifications are seen in the abdominal aorta. A surgical clip is seen in the pelvis. | | | |IMPRESSION: | |1. Postoperative findings as above without orthopedic hardware failure complication. | | | |2. No malalignment or fracture | | | | | + + documented in this encounter Visit Diagnoses + + | Diagnosis | + + | S/P lumbar spinal fusion Arthrodesis status | + + documented in this encounter"
--- OUTSIDE RECORDS SUMMARY | ~2020-03-16 | XMS | Encounter Summary ---
Demographics + + + | Address | [address] | | | [place] [address] | + + + | Home Phone | | + + + | Preferred Language | Unknown | + + + | Marital Status | | + + + | Presybeterian Affiliation | 1009 | + + + | Race | Unknown | + + + | Ethnic Group | Unknown | + + + Author + + + | Author | [facility] | | | and [place] | + + + | Organization | [facility] | | | and [place] | [...] [place], [place] | | | | | [address] | | + + + + + Care Team Providers + +------+ + | Care Log Sorter Name | Role | Phone | + +------+ + PCP | Unavailable | + +------+ + Encounter Details +--------+ + + + + | Date | Type | Department | Care Team | Description | +--------+ + + + + | 05/23/ | [facility] | [facility] | | | | 1999 | Encounter | MED CTR GENERIC OP | | | | | | CONV DEPT [address] | | | | | | [place], | | | | | | [place] [address] | | | | | | [phone] | | | +--------+ + + + [...]
--- OUTSIDE RECORDS SUMMARY | ~2020-03-16 | XMS | Encounter Summary ---
Demographics + + + | Address | [address] | | | [place] [address] | + + + | Home Phone | | + + + | Preferred Language | Unknown | + + + | Marital Status | | + + + | Yarsanism Affiliation | 1009 | + + + | Race | Unknown | + + + | Ethnic Group | Unknown | + + + Author + + + | Author | [facility] | | | and [place] | + + + | Organization | [facility] | | | and [place] [...] [place], [place] | | | | | [address] | | + + + + + Care Team Providers + +------+ + | Care Infant Teacher Name | Role | Phone | + +------+ + PCP | Unavailable | + +------+ + Encounter Details +--------+ + + + + | Date | Type | Department | Care Team | Description | +--------+ + + + + | 03/18/ | Hospital | [facility] | [place], | | | 1993 | Encounter | MED CTR MP INTRA OP | [id number] | | | | | [address] | [facility] | | | | | [place] | [place] [address] | | | | | [address] | [phone] | | | | | [phone] | | | +--------+ + + + [...]
--- OUTSIDE RECORDS SUMMARY | ~2020-03-16 | XMS | Encounter Summary ---
Demographics + + + | Address | [address] | | | [place] [address] | + + + | Home Phone | | + + + | Preferred Language | Unknown | + + + | Marital Status | | + + + | Anabaptism Affiliation | 1009 | + + + | Race | Unknown | + + + | Ethnic Group | Unknown | + + + Author + + + | Author | [facility] | | | and [place] | + + + | Organization | [facility] | | | and [place] | [...] [place], [place] | | | | | [address] | | + + + + + Care Team Providers + +------+ + | Care Electromedical Service Engineer Name | Role | Phone | + +------+ + PCP | Unavailable | + +------+ + Encounter Details +--------+ + + + + | Date | Type | Department | Care Team | Description | +--------+ + + + + | 10/28/ | [facility] | [facility] | | | | 1998 - | Encounter | MED CTR MED ONC | | | | | | [address] | | | | 10/29/ | | [place] [address] | | | | 1998 | | [phone] | | | +--------+ + + + [...]
--- OUTSIDE RECORDS SUMMARY | ~2020-03-16 | XMS | Encounter Summary ---
Demographics + + + | Address | [address] | | | [place] [address] | + + + | Home Phone | | + + + | Preferred Language | Unknown | + + + | Marital Status | | + + + | Sikhism Affiliation | 1009 | + + + | Race | Unknown | + + + | Ethnic Group | Unknown | + + + Author + + + | Author | [facility] | | | and [place] | + + + | Organization | [facility] | | | and [...] [place], [place] | | | | | [address] | | + + + + + Care Team Providers + +------+ + | Care Vision Teacher Name | Role | Phone | + +------+ + PCP | Unavailable | + +------+ + Encounter Details +--------+ + + + + | Date | Type | Department | Care Team | Description | +--------+ + + + + | 02/18/ | Hospital | [facility] | Conversion | | | 2014 | Encounter | [facility] | Transaction, | | | | | CLINIC [address] | Provider Unknown | | | | | [place] | [phone] | | | | | [address] | | | | | | [phone] | | | +--------+ + + + [...] + + documented as of this encounter Procedure Notes Conversion Transaction, Provider Unknown - 02/18/2015 2:01 PM PDTFormatting of this note m ight be different from the original. Pre-Procedure Instructions by Annie Dorsey RN at 02/18/151400 Author: Annie Dorsey RN Service: (none) Author Type: Registered Nurse Filed: 02/18/151401 Date of Service: 02/18/151400 Status: Signed Fruit Washer: Annie Dorsey RN (Registered Nurse) Pt meets METS of 4 per AHA guidelines. Multiple allergies: iodinated agents, topical and in travenous, PCN, aspirin and codeine. docume nted in this encounter Plan of Treatment Not on filedocumented as of this encounter Procedures + +--------+ + + + | Procedure Name | Priori | Date/Time | Associated Diagnosis | Comments | | | ty | | | | + +--------+ + + + | MRSA NAAT | Timed | 02/18/2015 | | Results for this | | | | 2:27 PM | | procedure are in the | | | | PDT | | results section. | + +--------+ + + + | TYPE AND SCREEN | Routin | 02/18/2015 | | Results for this | | | e | 2:09 PM | | procedure are in the | | | | PDT | | results section. | + +--------+ + + + | EXTERNAL LAB: CBC | Routin | 02/18/2015 | | Results for this | | | e | 1:57 PM | | procedure are in the | | | | PDT | | results section. | + +--------+ + + + | PTT | Routin | 02/18/2015 | | Results for this | | | e | 1:57 PM | | procedure are in the | | | | PDT | | results section. | + +--------+ + + + | PROTIME INR | Routin | 02/18/2015 | | Results for this | | | e | 1:57 PM | | procedure are in the | | | | PDT | | results section. | + +--------+ + + + | BASIC METABOLIC | Routin | 02/18/2015 | | Results for this | | PANEL | e | 1:57 PM | | procedure are in the | | | | PDT | | results section. | + +--------+ + + + | ECG 12 LEAD | Routin | 02/18/2015 | | Results for this | | | e | 1:42 PM | | procedure are in the | | | | PDT | | results section. | + +--------+ + + + documented in this encounter Results MRSA NAAT (02/18/2015 2:27 PM PDT) + + | Specimen | + + | | + + + + + | Narrative | Performed At | + + + | SOURCE NARES(NOSE) | EXTERNAL LAB | | Testing performed at [facility];[address] [place] [address];[place] [address] MRSA PCR | | | NEGATIVE Testing performed at | | | [address];[place] [address] | | + + + + +---------+ + + | Performing | Address | City/State/Zipcode | Phone Number | | Organization | | | | + +---------+ + + | EXTERNAL LAB | | | | + +---------+ + + Type and Screen (02/18/2015 2:09 PM PDT) + + + + + + | Component | Value | Ref Range | Performed | Pathologist | | | | | At | Signature | + + + + + + | ABO Rh | O POSITIVE | | EXTERNAL | | | | | | LAB | | + + + + + + | ABO Rh | Testing performed at | | EXTERNAL | | | | K[address] | | LAB | | | | [address];[place] [address] | | | | + + + + + + | Antibody | NEGATIVE | | EXTERNAL | | | Screen | | | LAB | | + + + + + + | Antibody | Testing performed at | | EXTERNAL | | | Screen | [facility];[address] | | LAB | | | | [address];[place] [address] | | | | + + + + + + + + | Specimen | + + | Blood specimen | | (specimen) | + + + +---------+ + + | Performing | Address | City/State/Zipcode | Phone Number | | Organization | | | | + +---------+ + + | EXTERNAL LAB | | | | + +---------+ + + PTT (02/18/2015 1:57 PM PDT) + + + + + + | Component | Value | Ref Range | Performed | Pathologist | | | | | At | Signature | + + + + + + | aPTT, | 28Comment: Testing | 23 - 32 seconds | EXTERNAL | | | Patient | performed at [facility];[address] | | LAB | | | | [address];[place] | | | | | | [address] | | | | + + + + + + + + | Specimen | + + | Blood specimen | | (specimen) | + + + +---------+ + + | Performing | Address | City/State/Zipcode | Phone Number | | Organization | | | | + +---------+ + + | EXTERNAL LAB | | | | + +---------+ + + Protime INR (02/18/2015 1:57 PM PDT) + + + + + + | Component | Value | Ref Range | Performed | Pathologist | | | | | At | Signature | + + + + + + | INR | 1.0Comment: REFERENCE | | EXTERNAL | | | | RANGE:0.9 - 1.2 | | LAB | | | | NON-ANTICOAGULATED2.0 | | | | | | - 3.0 ALL OTHER | | | | | | THERAPEUTIC | | | | | | INDICATIONS2.5 - 3.5 | | | | | | MECHANICAL HEART VALVES, | | | | | | RECURRENT OR SYSTEMIC | | | | | | EMBOLISMTesting | | | | | | performed at [facility] | | | | | | [facility];[place], [place] | | | | | | [address] | | | | + + + + + + + + | Specimen | + + | Blood specimen | | (specimen) | + + + +---------+ + + | Performing | Address | City/State/Zipcode | Phone Number | | Organization | | | | + +---------+ + + | EXTERNAL LAB | | | | + +---------+ + + External Lab: CBC (02/18/2015 1:57 PM PDT) + + + + + + | Component | Value | Ref Range | Performed | Pathologist | | | | | At | Signature | + + + + + + | WBC | 8.51Comment: Testing | 3.80 - 11.00 | EXTERNAL | | | | performed at [facility], [address] | K/uL | LAB | | | | [address], | | | | | | [place] [address] | | | | + + + + + + | Non- | 4.73Comment: Testing | 3.70 - 5.10 | EXTERNAL | | | Red Blood | performed at [facility], [address] | M/uL | LAB | | | Cells | [address], | | | | | Counted | [place] [address] | | | | + + + + + + | Hemoglobin | 14.6Comment: Testing | 11.3 - 15.5 | EXTERNAL | | | | performed at [facility], [address] | g/dL | LAB | | | | [address], | | | | | | [place] [address] | | | | + + + + + + | Hematocrit, | 44.6Comment: Testing | 34.0 - 46.0 % | EXTERNAL | | | POC | performed at [facility], [address] | | LAB | | | | [address], | | | | | | [place] [address] | | | | + + + + + + | MCV | 94.3Comment: Testing | 80.0 - 100.0 fl | EXTERNAL | | | | performed at [facility], [address] | | LAB | | | | [address], | | | | | | [place] [address] | | | | + + + + + + | MCH | 30.9Comment: Testing | 27.0 - 34.0 pg | EXTERNAL | | | | performed at [facility], [address] | | LAB | | | | [address], | | | | | | [place] [address] | | | | + + + + + + | MCHC | 32.7Comment: Testing | 32.0 - 35.5 | EXTERNAL | | | | performed at [facility], [address] | g/dL | LAB | | | | [address], | | | | | | [place] [address] | | | | + + + + + + | RDW-CV | 42.9Comment: Testing | 37 - 53 fl | EXTERNAL | | | | performed at [facility], [address] | | LAB | | | | [address], | | | | | | [place] [address] | | | | + + + + + + | Platelet | 227Comment: Testing | 150 - 400 K/uL | EXTERNAL | | | Count | performed at [facility], [address] | | LAB | | | Plasma | [address], | | | | | | [place] [address] | | | | + + + + + + | MPV | 8.8Comment: Testing | fl | EXTERNAL | | | | performed at [facility], [address] | | LAB | | | | [address], | | | | | | [place] [address] | | | | + + + + + + | Differentia | AUTOMATEDComment: | | EXTERNAL | | | l Type | Testing performed at | | LAB | | | | [facility], [address] | | | | | | [place] | | | | | | [address] | | | | + + + + + + | % Segmented | 55.81Comment: Testing | % | EXTERNAL | | | | performed at [facility], [address] | | LAB | | | Neutrophils | [address], | | | | | | [place] [address] | | | | + + + + + + | % | 36.42Comment: Testing | % | EXTERNAL | | | Lymphocytes | performed at [facility], [address] | | LAB | | | | [address], | | | | | | [place] [address] | | | | + + + + + + | % Monocytes | 6.12Comment: Testing | % | EXTERNAL | | | | performed at [facility], [address] | | LAB | | | | [address], | | | | | | [place] [address] | | | | + + + + + + | % | 1.32Comment: Testing | % | EXTERNAL | | | Eosinophils | performed at [facility], [address] | | LAB | | | | [address], | | | | | | [place] [address] | | | | + + + + + + | % Basophils | 0.33Comment: Testing | % | EXTERNAL | | | | performed at [facility], [address] | | LAB | | | | [address], | | | | | | [place] [address] | | | | + + + + + + | Absolute | 4.75Comment: Testing | 1.90 - 7.40 | EXTERNAL | | | Segmented | performed at [facility], [address] | K/uL | LAB | | | Neutrophils | [address], | | | | | | [place] [address] | | | | + + + + + + | Absolute | 3.10Comment: Testing | 1.00 - 3.90 | EXTERNAL | | | Lymphocytes | performed at [facility], [address] | K/uL | LAB | | | | [address], | | | | | | [place] [address] | | | | + + + + + + | Absolute | 0.52Comment: Testing | 0.00 - 0.80 | EXTERNAL | | | Monocytes | performed at [facility], [address] | K/uL | LAB | | | | [address], | | | | | | [place] [address] | | | | + + + + + + | Absolute | 0.11Comment: Testing | 0.00 - 0.50 | EXTERNAL | | | Eosinophils | performed at [facility], [address] | K/uL | LAB | | | | [address], | | | | | | [place] [address] | | | | + + + + + + | Absolute | 0.03Comment: Testing | 0.00 - 0.10 | EXTERNAL | | | Basophils | performed at [facility], [address] | K/uL | LAB | | | | [address], | | | | | | [place] [address] | | | | + + + + + + + + | Specimen | + + | Blood specimen | | (specimen) | + + + +---------+ + + | Performing | Address | City/State/Zipcode | Phone Number | | Organization | | | | + +---------+ + + | EXTERNAL LAB | | | | + +---------+ + + Basic Metabolic Panel (02/18/2015 1:57 PM PDT) + + + + + + | Component | Value | Ref Range | Performed | Pathologist | | | | | At | Signature | + + + + + + | Na | 136Comment: Testing | 135 - 143 | EXTERNAL | | | | performed at [facility], [address] | mmol/L | LAB | | | | [address], | | | | | | [place], [place] [address] | | | | + + + + + + | K | 4.0Comment: Testing | 3.5 - 4.9 | EXTERNAL | | | | performed at [facility], [address] | mmol/L | LAB | | | | [address], | | | | | | [place] [address] | | | | + + + + + + | Cl | 102Comment: Testing | 99 - 109 mmol/L | EXTERNAL | | | | performed at [facility], [address] | | LAB | | | | [address], | | | | | | [place] [address] | | | | + + + + + + | CO2 | 26Comment: Testing | 23 - 32 mmol/L | EXTERNAL | | | | performed at [facility], [address] | | LAB | | | | [address], | | | | | | [place] [address] | | | | + + + + + + | Anion Gap | 12Comment: Testing | 5 - 20 mmol/L | EXTERNAL | | | | performed at [facility], [address] | | LAB | | | | [address], | | | | | | [place] [address] | | | | + + + + + + | Glucose, | 122 (H)Comment: Testing | 65 - 99 mg/dL | EXTERNAL | | | Fasting | performed at [facility], [address] | | LAB | | | | [address], | | | | | | [place] [address] | | | | + + + + + + | BUN | 13Comment: Testing | 8 - 25 mg/dL | EXTERNAL | | | | performed at [facility], [address] | | LAB | | | | [address], | | | | | | [place] [address] | | | | + + + + + + | Creatinine | 0.66Comment: Testing | 0.50 - 1.00 | EXTERNAL | | | | performed at [facility], [address] | mg/dL | LAB | | | | [address], | | | | | | [place] [address] | | | | + + + + + + | BUN/Creatin | 20Comment: Testing | | EXTERNAL | | | ine Ratio | performed at [facility], [address] | | LAB | | | | [address], | | | | | | [place] [address] | | | | + + + + + + | Calcium | 9.8Comment: Testing | 8.5 - 10.5 | EXTERNAL | | | | performed at [facility], [address] | mg/dL | LAB | | | | [address], | | | | | | [place] [address] | | | | + + + + + + | Estimated | >60Comment: GFR <60: | mL/min/1.73m2 | EXTERNAL | | | GFR | CHRONIC KIDNEY DISEASE, | | LAB | | | | IF FOUND OVER A 3 MONTH | | | | | | PERIOD.GFR <15: KIDNEY | | | | | | FAILURE.FOR | | | | | | AMERICANS, MULTIPLY THE | | | | | | CALCULATED GFR BY | | | | | | 1.210.Testing performed | | | | | | at [facility], [address] | | | | | | [address] [facility], | | | | | | [place] [address] | | | | + + + + + + + + | Specimen | + + | Blood specimen | | (specimen) | + + + +---------+ + + | Performing | Address | City/State/Zipcode | Phone Number | | Organization | | | | + +---------+ + + | EXTERNAL LAB | | | | + +---------+ + + ECG 12 lead (02/18/2015 1:42 PM PDT) + + + + + + | Component | Value | Ref Range | Performed | Pathologist | | | | | At | Signature | + + + + + + | DIAGNOSIS: | Normal sinus | | EXTERNAL | | | | rhythmNormal ECGNo | | LAB | | | | previous ECGs | | | | | | availableConfirmed by | | | | | | Gagan Maidson ([id number]) on | | | | | | 02/18/2015 10:45:11 PM | | | | + + + + + + + + | Specimen | + + | | + + + + + | Narrative | Performed At | + + + | Historically converted procedure from [employer] Epic environment | EXTERNAL LAB | + + + + +---------+ + + | Performing | Address | City/State/Zipcode | Phone Number | | Organization | | | | + +---------+ + + | EXTERNAL LAB | | | | + +---------+ + + documented in this encounter Visit Diagnoses Not on filedocumented in this encounter"
--- OUTSIDE RECORDS SUMMARY | ~2020-03-16 | XMS | Encounter Summary ---
Demographics + + + | Address | [address] | | | [place] [address] | + + + | Home Phone | | + + + | Preferred Language | Unknown | + + + | Marital Status | | + + + | Alevism Affiliation | 1009 | + + + | Race | Unknown | + + + | Ethnic Group | Unknown | + + + Author + + + | Author | [facility] | | | and [place] | + + + | Organization | [facility] | | | and [place] | [...] [place], [place] | | | | | [address] | | + + + + + Care Team Providers + +------+ + | Care Tailoring Teacher Name | Role | Phone | + +------+ + PCP | Unavailable | + +------+ + Encounter Details +--------+ + + + + | Date | Type | Department | Care Team | Description | +--------+ + + + + | 11/06/ | [facility] | [facility] | | | | 1998 | Encounter | MED CTR GENERIC OP | | | | | | CONV DEPT [address] | | | | | | [place], | | | | | | [place] [address] | | | | | | [phone] | | | +--------+ + + + [...]
--- OUTSIDE RECORDS SUMMARY | ~2020-03-16 | XMS | Encounter Summary ---
Demographics + + + | Address | [address] | | | [place] [address] | + + + | Home Phone | | + + + | Preferred Language | Unknown | + + + | Marital Status | | + + + | Adventism Affiliation | 1009 | + + + | Race | Unknown | + + + | Ethnic Group | Unknown | + + + Author + + + | Author | [facility] | | | and [place] | + + + | Organization | [facility] | | | and [place] [...] [place], [place] | | | | | [address] | | + + + + + Care Team Providers + +------+ + | Care Paper Slitter Name | Role | Phone | + +------+ + PCP | Unavailable | + +------+ + Encounter Details +--------+ + + + + | Date | Type | Department | Care Team | Description | +--------+ + + + + | 02/16/ | Hospital | [facility] | Conversion | Degeneration of | | 2019 | Encounter | [facility] | Transaction, | intervertebral disc | | | | [address] | Provider Unknown | of cervical region; | | | | [address] [place], [place] | | Cervical | | | | [address] | (Fax) | radiculopathy; | | | | [phone] | | Spinal stenosis of | | | | | | cervical region | +--------+ + + + + Social [...] + + + +---------+ + + | baclofen | | | 0 | 02/05/20 | | | (LIORESAL) 10 mg | | | | 19 | | | tablet | | | [...] + + +---------+ + + | oxyCODONE 10 MG | take 1-2 tablets | | 0 | 02/08/20 | | | TABS | every 4 to 6 hours | | | 19 | | | | if needed | | | | | + + [...] + +--------+ + + + | XR CERVICAL SPINE 2 | Routin | 02/16/2019 | | Results for this | | OR 3 VIEWS | e | 4:50 PM | | procedure are in the | | | | PDT | | results section. | + +--------+ + + + documented in this encounter Results XR Cervical Spine 2 or 3 Views (02/16/2019 4:50 PM PDT) + + | Specimen | + + | | + + + + + | Impressions | Performed At | + + + | 1. No evidence of dynamic instability between flexion and extension. | | | 2. There is moderate degenerative disc disease of the cervical | | | spine. Signed by: Travis Granados, Alexandro Sign Date/Time: 02/19/2019 | | | 2:41 PM | | + + + + + + | Narrative | Performed At | + + + | CERVICAL SPINE TWO OR THREE VIEWS CLINICAL INFORMATION: | | | Degeneration of intervertebral disc of cervical region COMPARISON: | | | None FINDINGS: Alignment: The craniocervical junction is maintained. | | | No dynamic instability between flexion and extension. Vertebrae: | | | Normal. No fractures or vertebral deformity. Odontoid process is | | | normal. Cervical Disc Levels: There is severe disc space narrowing at | | | C4-5 with moderate narrowing at C5-6 and C6-7 with extension. | | | Facets and Posterior Spinal Elements: There is mild facet arthropathy | | | of the cervical spine. Prevertebral Soft Tissue Contours: Surgical | | | clips are noted along the anterior neck from thyroidectomy. | | + + + + + | Procedure Note | + + | Nico, Rad Conversion - 04/03/2019 9:29 PM PDT CERVICAL SPINE TWO OR THREE VIEWS | | CLINICAL INFORMATION: | | Degeneration of intervertebral disc of cervical region | | COMPARISON: | | None | | FINDINGS: | | Alignment: The craniocervical junction is maintained. No dynamic | | instability between flexion and extension. | | Vertebrae: Normal. No fractures or vertebral deformity. Odontoid | | process is normal. | | Cervical Disc Levels: There is severe disc space narrowing at C4-5 with | | moderate narrowing at C5-6 and C6-7 with extension. | | Facets and Posterior Spinal Elements: There is mild facet arthropathy | | of the cervical spine. | | Prevertebral Soft Tissue Contours: Surgical clips are noted along the | | anterior neck from thyroidectomy. | | IMPRESSION: | | 1. No evidence of dynamic instability between flexion and extension. | | 2. There is moderate degenerative disc disease of the cervical spine. | | Signed by: Travis Granados Richard | | Sign Date/Time: 02/19/2019 2:41 PM | + + documented in this encounter Visit Diagnoses + + | Diagnosis | + + | Degeneration of intervertebral disc of cervical region | + + | Cervical radiculopathy Brachial neuritis or radiculitis nos | + + | Spinal stenosis of cervical region Spinal stenosis in cervical region | + + documented in this encounter"
--- OUTSIDE RECORDS SUMMARY | ~2020-03-16 | XMS | Encounter Summary ---
Demographics + + + | Address | [address] | | | [place] [address] | + + + | Home Phone | | + + + | Preferred Language | Unknown | + + + | Marital Status | | + + + | Uatsdin Affiliation | 1009 | + + + | Race | Unknown | + + + | Ethnic Group | Unknown | + + + Author + + + | Author | [facility] | | | and [place] | + + + | Organization | [facility] | | | and [...] [place], [place] | | | | | [address] | | + + + + + Care Team Providers + +------+ + | Care Asphalt Tamping Machine Operator Name | Role | Phone | + +------+ + PCP | Unavailable | + +------+ + Encounter Details +--------+ + + + + | Date | Type | Department | Care Team | Description | +--------+ + + + + | 09/04/ | Hospital | [facility] | Conversion | S/P lumbar spinal | | 2016 | Encounter | [facility] | Transaction, | fusion | | | | [address] | Provider Unknown | | | | | [address] [place], [place] | [phone] | | | | | [address] | | | | | | [phone] | | | +--------+ + + + [...] LUMBAR SPINE 1 VW | Routin | 09/04/2015 | | Results for this | | | e | 12:55 PM | | procedure are in the | | | | PST | | results section. | + +--------+ + + + documented in this encounter Results XR Lumbar Spine 1 View (09/04/2015 12:55 PM PST) + + | Specimen | + + | | + + + + + | Impressions | Performed At | + + + | 1. Unchanged postoperative appearance. | | + + + + + + | Narrative | Performed At | + + + | [facility]NA M WARE XR LUMBAR SPINE 1 VIEW 09/04/2015 12:55 PM | | | HISTORY: Follow-up spinal fusion. TECHNIQUE: One view of the | | | lumbar spine. FINDINGS: Compared with 06/05/2015. Alignment | | | appears intact. No acute compression fracture is seen. Again noted are | | | postoperative changes at L3/4, 4/5, and 5/S1 without significant | | | change. | | + + + + + | Procedure Note | + + | Ncio, Rad Conversion - 04/05/2019 8:48 PM PDT [facility] LUMBAR SPINE 1 | | VIEW09/04/2015 12:55 PM HISTORY:Follow-up spinal fusion. TECHNIQUE:One view of the lumbar | | spine. FINDINGS:Compared with 06/05/2015. Alignment appears intact. No acute | | compression fracture is seen. Again noted are postoperative changes at L3/4, 4/5, and | | 5/S1 without significant change. IMPRESSION: 1. Unchanged postoperative appearance. | | | | | |TECHNIQUE: | |One view of the lumbar spine. | | | |FINDINGS: | |Compared with 06/05/2015. Alignment appears intact. No acute compression fracture is seen. Again noted are postoperative changes at L3/4, 4/5, and 5/S1 without significant change. | | | |IMPRESSION: | |1. Unchanged postoperative appearance. | | | | | + + documented in this encounter Visit Diagnoses + + | Diagnosis | + + | S/P lumbar spinal fusion Arthrodesis status | + + documented in this encounter"
--- OUTSIDE RECORDS SUMMARY | ~2020-03-16 | XMS | Encounter Summary ---
Demographics + + + | Address | [address] | | | [place] [address] | + + + | Home Phone | | + + + | Preferred Language | Unknown | + + + | Marital Status | | + + + | Anabaptism Affiliation | 1009 | + + + | Race | Unknown | + + + | Ethnic Group | Unknown | + + + Author + + + | Author | [facility] | | | and [place] | + + + | Organization | [facility] | | | and [place] [...] [place], [place] | | | | | [address] | | + + + + + Care Team Providers + +------+ + | Care Hat Checker Name | Role | Phone | + +------+ + PCP | Unavailable | + +------+ + Encounter Details +--------+ + + + + | Date | Type | Department | Care Team | Description | +--------+ + + + + | 12/05/ | Hospital | [facility] | Conversion | Pain | | 2014 | Encounter | CONVERSION DEP [address] | Transaction, | | | | | [address] | Provider Unknown | | | | | [place] | [phone] | | | | | [address] | | | | | | [phone] | | | +--------+ + + + [...] | + +--------+ + + + | MRI LUMBAR SPINE WO | Routin | 11/06/2014 | | Results for this | | CONTRAST | e | 11:34 PM | | procedure are in the | | | | PDT | | results section. | + +--------+ + + + documented in this encounter Results MRI Lumbar Spine wo Contrast (11/06/2014 11:34 PM PDT) + + | Specimen | + + | | + + + + + | Narrative | Performed At | + + + | This is a non-reportable procedure without a radiologist report and | | | is used for image storage only | | + + + + + | Procedure Note | + + | NicoShmuel Conversion - 04/06/2019 6:12 AM PDT This is a non-reportable procedure | | without a radiologist report and isused for image storage only | + + documented in this encounter Visit Diagnoses + + | Diagnosis | + + | Pain Generalized pain | + + documented in this encounter"
--- OUTSIDE RECORDS SUMMARY | ~2020-03-16 | XMS | Encounter Summary ---
Demographics + + + | Address | [address] | | | [place] [address] | + + + | Home Phone | | + + + | Preferred Language | Unknown | + + + | Marital Status | | + + + | Mandaeism Affiliation | 1009 | + + + | Race | Unknown | + + + | Ethnic Group | Unknown | + + + Author + + + | Author | [facility] | | | and [place] | + + + | Organization | [facility] [address] | | | | | [place], [place] | | | | | [address] | | + + + + + Care Team Providers + +------+ + | Care Manager Stone Name | Role | Phone | + +------+ + PCP | Unavailable | + +------+ + Encounter Details +--------+ + + + + | Date | Type | Department | Care Team | Description | +--------+ + + + + | 11/07/ | Hospital | [facility] | Murali Vanegas | | | 2007 - | Encounter | MED CTR OP REHAB | MD [address] | | | | | [address] | [address] | | | 11/19/ | | [place] [address] | [place] [address] | | | 2007 | | [phone] | [phone] | | | | | | | [...]
--- OUTSIDE RECORDS SUMMARY | ~2020-03-16 | XMS | Encounter Summary ---
Demographics + + + | Address | [address] | | | [place] [address] | + + + | Home Phone [...] + | Author | [facility] | | | and [place] | + + + | Organization | [facility] | | | and [place] | [...] [place], [place] | | | | | [address] | | + + + + + Care Team Providers + +------+ + | Care Woodworking Belt Sander Name | Role | Phone | + +------+ + PCP | Unavailable | + +------+ + Encounter Details +--------+ + + + + | Date | Type | Department | Care Team | Description | +--------+ + + + + | 11/04/ | [facility] | [facility] | | | | 1998 | Encounter | MED CTR GENERIC OP | | | | | | CONV DEPT [address] | | | | | | [place], | | | | | | [place] [id number] | | | | | | [phone] | | | +--------+ + + + [...]
--- OUTSIDE RECORDS SUMMARY | ~2020-03-16 | XMS | Encounter Summary ---
Demographics + + + | Address | [address] | | | [place] [address] | + + + | Home Phone | | + + + | Preferred Language | Unknown | + + + | Marital Status | | + + + | Episcopal Affiliation | 1009 | + + + | Race | Unknown | + + + | Ethnic Group | Unknown | + + + Author + + + | Author | [facility] | | | and [place] | + + + | Organization | [facility] | | | and [place] [...] [place], [place] | | | | | [address] | | + + + + + Care Team Providers + +------+ + | Care Party Host/Hostess Name | Role | Phone | + +------+ + PCP | Unavailable | + +------+ + Encounter Details +--------+ + + + + | Date | Type | Department | Care Team | Description | +--------+ + + + + | 03/18/ | Orders Only | [facility] | Provider, | | | 2019 | | SYSTEM GENERIC OP | MD [address] | | | | | CONVERSION [address] | [address] | | | | | [address] [place], [place] | [place] [address] | | | | | [address] | | | | | | [phone] | | | +--------+ + + + [...]
--- OUTSIDE RECORDS SUMMARY | ~2020-03-16 | XMS | Encounter Summary ---
Demographics + + + | Address | [address] | | | [place] [address] | + + + | Home Phone | | + + + | Preferred Language | Unknown | + + + | Marital Status | | + + + | Mu-Ism Affiliation | 1009 | + + + | Race | Unknown | + + + | Ethnic Group | Unknown | + + + Author + + + | Author | [facility] | | | and [place] | + + + | Organization | [facility] | | | and [place] [...] [place], [place] | | | | | [address] | | + + + + + Care Team Providers + +------+ + | Care Rn Private Duty Name | Role | Phone | + +------+ + PCP | Unavailable | + +------+ + Encounter Details +--------+ + + + + | Date | Type | Department | Care Team | Description | +--------+ + + + + | 07/19/ | Hospital | [facility] | Walter Marin, | | | 1993 - | Encounter | [facility] | [id number] | | | | | [facility] [address] | [place] | | | 07/21/ | | [place], | [place] [address] | | | 1995 | | [place] [address] | [phone] | | | | | [phone] | | | +--------+ + + + [...]
--- OUTSIDE RECORDS SUMMARY | ~2020-03-16 | XMS | Encounter Summary ---
Demographics + + + | Address | [address] | | | [place] [address] | + + + | Home Phone | | + + + | Preferred Language | Unknown | + + + | Marital Status | | + + + | Sabianism Affiliation | 1009 | + + + | Race | Unknown | + + + | Ethnic Group | Unknown | + + + Author + + + | Author | [facility] | | | and [place] | + + + | Organization | [facility] [...] [place], [place] | | | | | [address] | | + + + + + Care Team Providers + +------+ + | Care Ice Scraper Name | Role | Phone | + +------+ + PCP | Unavailable | + +------+ + Encounter Details +--------+ + + + + | Date | Type | Department | Care Team | Description | +--------+ + + + + | 11/28/ | [facility] | [facility] | | | | 1998 | Encounter | MED CTR GENERIC OP | | | | | | CONV DEPT [address] | | | | | | [place], | | | | | | [place] [address] | | | | | | [phone] | | | +--------+ + + + [...]
--- OUTSIDE RECORDS SUMMARY | ~2020-03-16 | XMS | Encounter Summary ---
Demographics + + + | Address | [address] | | | [place] [address] | + + + | Home Phone | | + + + | Preferred Language | Unknown | + + + | Marital Status | | + + + | Restorationism Affiliation | [id number] | + + + | Race | Unknown | + + + | Ethnic Group | Unknown | + + + Author + + + | Author | [facility] | | | and [place] | + + + | Organization | [facility] | | [...] [address] | | | | | [place], [place] | | | | | [address] | | + + + + + Care Team Providers + +------+ + | Care Ecg Technician Name | Role | Phone | + +------+ + PCP | Unavailable | + +------+ + Encounter Details +--------+ + + + + | Date | Type | Department | Care Team | Description | +--------+ + + + + | 02/24/ | Hospital | [facility] | Ju Burr MD | Spinal stenosis, | | 2015 - | Encounter | [facility] [address] | [address] | lumbar region, | | | | [address] | [address]TH FLOOR | without neurogenic | | 02/28/ | | [place] | [place] | claudication; | | 2014 | | [id number] | [id number] | Acquired | | | | [phone] | [phone] | spondylolisthesis | | | | | | | [...] + + documented as of this encounter Discharge Summaries Ju Burr MD - 03/21/2015 11:11 AM PDTFormatting of this note might be different fr om the original. Discharge Summaries by Ju Burr MD at 03/21/15 1111 Author: Ju Burr MD Service: Neurosurgery Author Type: Physician Filed: 03/21/15 1120 Date of Service: 03/21/15 1111 Status: Signed Engineering Psychologist: Ju Burr MD (Physician) [facility] Service: Neurosurgery Discharge Summary Date of Admission: 2015 Date of Discharge: 02-28-2015 Discharge Provider: JU BURR MD Treatment Team: Admitting Provider: Ju Burr MD Discharge Diagnoses: Lumbar stenosis and spondylolisthesis L3-4 Chronic pain Procedures: Procedure(s) with comments: LUMBAR - TLIF FUSION - L3-4 LUMBAR - HARDWARE REMOVAL BRIEF HISTORY OF PRESENTATION: Ana M Ware is a 50 y.o. female who presented for elective spine surgery. HOSPITAL COURSE: The patient was taken to the operating room and underwent surgery without complication s. They were sent to the surgical floor for postoperative recovery. Their diet and activit y level were advanced as tolerated. PT was consulted to help with mobilization. The hospita l course was complicated by difficult postoperative pain control given her high narcotic usa ge preop. This took several days to get her on a stable regimen which included oxycontin. On the day of discharge, the patient was ambulatory, voiding and tolerating oral pain medica tions. The incision looked good and they were stable for discharge home. Past Medical History Diagnosis Date GERD (gastroesophageal reflux disease) Hepatitis C Pneumonia History of stomach ulcers Other chronic pain Joint pain Neuromuscular disorder (HCC) Thyroid disease Past Surgical History Procedure Laterality Date Lumbar fusion Knee surgery Hysterectomy Spine surgery Unlisted procedure arthroscopy Abdominal surgery Appendectomy Cholecystectomy Hardware present Tonsillectomy Lumbar fusion N/A 2015 Procedure: LUMBAR - TLIF FUSION; Surgeon: Ju Burr MD; Location: [facility] MAIN OR; S ervice: Neurosurgery; Laterality: N/A; L3-4 Lumbar spine hardware removal N/A 2015 Procedure: LUMBAR - HARDWARE REMOVAL; Surgeon: Ju Burr MD; Location: [facility] MAIN O R; Service: Neurosurgery; Laterality: N/A; L4-S1 Allergies Allergen Reactions Chlorhexidine Gluconate Hives Iodinated Diagnostic Agents Hives Iodine Solution [Povidone Iodine] Hives and Rash Penicillins Hives and Rash Hydroxyzine Hcl Rash Aspirin Nausea and Vomiting Codeine Nausea and Vomiting No prescriptions prior to admission DISCHARGE EXAM Vital Signs: BP 103/50 mmHg | Pulse 82 | Temp(Src) 98.6 F (37 C) (Oral) | Resp 16 | Ht 1.765 m (5' 9 .5") | Wt 98 kg (216 lb 0.8 oz) | BMI 31.46 kg/m2 | SpO2 96% Physical Exam Alert and oriented x 3. Moves UE and LE well. Ambulatory. Incision C/D/I. PLAN Discharge home. Followup ~ 2 weeks postop. Discharge instructions given (and provided in preop packet and discharge papers). Call office [phone] if any questions or problems or return to [facility] ER. Will work on weaning pain meds in future as able. Specific instructions given on pain med use. Follow up: Jhonny Geiger MD [address] [place] [id number] Medication List CONTINUE taking these medications levothyroxine 112 MCG tablet Refills: 0 Commonly known as: SYNTHROID pregabalin 75 MG capsule Refills: 0 Commonly known as: LYRICA STOP taking these medications diazepam 5 MG tablet Commonly known as: VALIUM oxyCODONE 15 MG immediate release tablet Commonly known as: ROXICODONE JU BURR MD 03/21/2015 documented in this encounter Medications at Time of Discharge [...] + + documented as of this encounter Progress Notes Conversion Transaction, Provider Unknown - 02/28/2015 9:54 AM PDTFormatting of this note m ight be different from the original. Case Management by LORI Gr at 02/28/15953 Author: LORI Gr Service: (none) Author Type: Oven Unloader Filed: 02/28/15953 Date of Service: 02/28/15953 Status: Signed Engineering Psychologist: LORI Gr (Oven Unloader) CM met with pt for continued discharge planning. Pt states she still has no needs and shoul d be able to manage at home once her symptoms have resolved. CM will continue to follow as n piter. Víctor MELENDEZ Ju Reyes MD - 02/27/2015 3:53 PM PDT Progress Notes by Ju Burr MD at 02/27/15 965 Author: Ju Burr MD Service: Neurosurgery Author Type: Physician Filed: 02/27/151554 Date of Service: 02/27/151552 Status: Signed Engineering Psychologist: Ju Burr MD (Physician) [facility] Service: Neurological Surgery Progress Note Hospital Day: LOS: 3 days Post-Op Day: 3 Days Post-Op SUBJECTIVE Doing a little better but still requiring significant pain meds to keep up with her pain le shelbi. Trying to wean off the IV meds before going home. Walking a lot she says. Low grade temps. Denies dysuria. OBJECTIVE Vital Signs: BP 109/59 | Pulse 93 | Temp(Src) 99.4 F (37.4 C) (Oral) | Resp 18 | Ht 1.765 m (5' 9.5" ) | Wt 98 kg (216 lb 0.8 oz) | BMI 31.46 kg/m2 | SpO2 95% Input/Output Last 3 shifts I/O last 3 completed shifts: In: 3326 [P.O.:2400; I.V.:926] Out: 7060 [Urine:7050; Drains:10] Input/Output Last shift I/O this shift: In: 1075 [P.O.:1075] Out: 1500 [Urine:1500] Physical Exam: Alert and oriented x 3. Moves UE and LE 5/5. Incision C/D/I, slightly rash where tape was. ASSESSMENT & PLAN POD#3 s/p lumbar laminectomy, extension of fusion to L3-4. -Continue to work on weaning IV pain meds. -Probable D/C home tomorrow. Ju Burr MD 02/27/2015 onversion Transact ion, Provider Unknown - 02/26/2015 4:19 PM PDTFormatting of this note might be different fr om the original. Therapy Progress Note by Héctor Mg PTA at 02/26/15 161 Author: Héctor Mg PTA Service: (none) Author Type: Drafter Automotive Design Filed: 02/26/15 162 Date of Service: 07/08/15 1619 Status: Signed Engineering Psychologist: Héctor Mg PTA ([employer]) 02/26/15 1619 PT Last Visit PT Received On 02/26/15 Reason for Treatment Spinal surgery Requires PT Follow Up No Assistance Required 1 person Precautions Spinal Precautions Lumbar Other Comments Comments pt supine in bed willing to participate able to correctly and safely transfer in to and out of bed able to safely complete gait training including stair training pt w/ no questions or concerns at this time Cognition Overall Cognitive Status WFL Orientation Level Oriented Bed Mobility Rolling Modified independent Sidelying to Sit Modified independent Sit to Sidelying Modified independent Scooting Modified independent Transfers Sit to/from Stand Modified independent Mobility Ambulation Assistance Modified independent Maximal Ambulation Distance (feet) 600 Total Ambulation Distance (feet) 600 Distance limited by? Therapist/staff discretion Pattern Alternating;Decreased dae Assistive Device Walker front wheeled Stairs Assistance Supervision Number of Stairs 3 Number of stairs limited by? Therapist/staff discretion Stair Management Technique Ttzk-ynmy-smer;Rails bilateral Activity Tolerance Activity Tolerance Patient tolerated treatment without report of fatigue Plan Progress Reached highest level of independence with therapy Recommendation Recommendations Home Assist PT recommendations were discussed and verified with supervising PT. onver jennifer Ramirez Provider Unknown - 02/26/2015 10:35 AM PDT Therapy Progress Note by Renetta Salguero PTA at 02/26/15 1035 Author: Renetta Salguero PTA Service: (none) Author Type: [employer]fter [employer] Filed: 02/26/15 1126 Date of Service: 02/26/15 1035 Status: Signed Engineering Psychologist: Renetta Salguero PTA ([employer]) 02/26/15 1035 PT Last Visit PT Received On 02/26/15 Reason for Treatment Spinal surgery Requires PT Follow Up Yes Follow up PT Only? No Assistance Required 1 person Precautions Spinal Precautions Lumbar Other Precautions fall risk Other Comments Comments Pt presented to tx sidelying in bed; agreeable to PT. Pt instructed in and perform ed supine therex. Pt left sidelying in bed with call light within reach. Cognition Overall Cognitive Status WFL Orientation Level Oriented Supine Supine-Exercise Type Ankle pumps;Glut sets;SLR;Heel slides (toe curls/stretches) Supine-Exercise Comments x10 reps, bilat Activity Tolerance Activity Tolerance Patient limited by pain Nurse Made Aware TOMAS meek Plan Treatment/Interventions Continue per Primary PT POC Progress Progressing toward goals Recommendation Recommendations Home Assist PT recommendations were discussed and verified with supervising PT. onver jennifer Transaction, Provider Unknown - 02/26/2015 7:30 AM PDT Nurse Progress Note by Ana Gaytan RN at 02/26/15729 Author: Ana Gaytan RN Service: (none) Author Type: Registered Nurse Filed: 02/26/15 1013 Date of Service: 02/26/15729 Status: Signed Engineering Psychologist: Ana Gaytan RN (Registered Nurse) Discussed POC with Dr Burr including patient complaints of severe, persistent pain. Asked about any labs MD wanted today. No additional orders received at this time. Anticipate hemov ac drain to be DC today by Kathy Ellis PA-C. Will continue to monitor. Ana Gaytan RN 02/26/2015 10:12 AM eJu doe MD - 02/26/2015 7:28 AM PDT Progress Notes by Ju Burr MD at 02/26/15727 Author: Ju Burr MD Service: Neurosurgery Author Type: Physician Filed: 02/26/15730 Date of Service: 02/26/15727 Status: Signed Engineering Psychologist: Ju Burr MD (Physician) [facility] Service: Neurological Surgery Progress Note Hospital Day: LOS: 2 days Post-Op Day: 2 Days Post-Op SUBJECTIVE Doing a little better but still requiring significant pain meds to keep up with her reporte d pain. Oxycodone 80mg BID + prn oxycodone q 4hrs + IV dilaudid. Mostly incisional back pain. No leg pain reported to me. Walked 4 times yesterday. OBJECTIVE Vital Signs: BP 114/58 | Pulse 87 | Temp(Src) 98.9 F (37.2 C) (Oral) | Resp 20 | Ht 1.765 m (5' 9.5" ) | Wt 98 kg (216 lb 0.8 oz) | BMI 31.46 kg/m2 | SpO2 95% Input/Output Last 3 shifts I/O last 3 completed shifts: In: 5270 [P.O.:2565; I.V.:2705] Out: 8830 [Urine:8600; Drains:230] Input/Output Last shift Physical Exam: Alert and oriented x 3. Lying on side. Moves UE and LE 5/5. Incision C/D/I. Drain minimal output. ASSESSMENT & PLAN POD#2 s/p lumbar laminectomy, extension of fusion to L3-4. -D/C drain. -Continue to mobilize -May increase oxycontin further to try and diminish IV dilaudid and PO oxycodone requiremen ts. Ju Burr MD 02/26/2015 onversion Transact ion, Provider Unknown - 02/25/2015 3:39 PM PDTFormatting of this note might be different fr om the original. Nurse Progress Note by Jackie Morales RN at 02/25/15 1539 Author: Jackie Morales RN Service: (none) Author Type: Registered Nurse Filed: 02/25/15 1543 Date of Service: 02/25/15 153 Status: Signed Engineering Psychologist: Jackie Morales RN (Registered Nurse) Pt continues to request 2mg Dilaudid every hour on the hour. States her back "olivo with 7/ 10 pain" Pt states that she thinks that if she had a AUDITING CLERK she would have "better control over her pain because she would be able to sleep/wake and push a button and have pain relief imm ediately." VSS at this time Dr Burr aware of status. Will continue to monitor. Ju Reyes MD - 02/25/2015 3:26 PM PDT Progress Notes by Ju Burr MD at 02/25/15 1526 Author: Ju Burr MD Service: Neurosurgery Author Type: Physician Filed: 02/25/15 1529 Date of Service: 02/25/15 1526 Status: Signed Engineering Psychologist: Ju Burr MD (Physician) Still requiring q 1 or 2 hour Dilaudid for breakthrough pain as well as the oxycodone and o xycontin. She is continuing to be tearful and requesting more pain meds. On oxycodone 30mg PO q 2 hrs at home apparently (240-300mg approximately daily she says) and even wakes up at night to take some. I will increase the Oxcontin to 80 mg BID + her prn oxycodone and Dilau did. onversion Transact ion, Provider Unknown - 02/25/2015 2:27 PM PDTFormatting of this note might be different fr om the original. Therapy Progress Note by Héctor Mg PTA at 02/25/15 1427 Author: Héctor Mg PTA Service: (none) Author Type: Drafter [employer] Design Filed: 02/25/15 1428 Date of Service: 02/25/151426 Status: Signed Engineering Psychologist: Héctor Mg PTA ([employer]) 02/25/15 1427 PT Last Visit PT Received On 02/25/15 Reason for Treatment Spinal surgery Requires PT Follow Up Yes Assistance Required 1 person Precautions Spinal Precautions Lumbar Other Comments Comments pt supine in bed willing to participate completed gait training and returned to sidelying Cognition Overall Cognitive Status WFL Orientation Level Oriented Bed Mobility Rolling Standby assist Sidelying to Sit Supervision Sit to Sidelying Supervision Scooting Supervision Transfers Sit to/from Stand Supervision Mobility Ambulation Assistance Supervision Maximal Ambulation Distance (feet) 550 Total Ambulation Distance (feet) 550 Distance limited by? Patient's ability Pattern Alternating;Decreased dae Assistive Device Walker front wheeled Activity Tolerance Activity Tolerance Patient limited by pain Plan Treatment/Interventions Continue per Primary PT POC Progress Progressing toward goals Recommendation Recommendations Home Assist PT recommendations were discussed and verified with supervising PT. onver jennifer Transaction, Provider Unknown - 02/25/2015 10:58 AM PDT Therapy Progress Note by Héctor Mg PTA at 02/25/15 0854 Author: Héctor Mg PTA Service: (none) Author Type: Drafter [employer] Filed: 02/25/15 1101 Date of Service: 02/25/15 1058 Status: Signed Engineering Psychologist: Héctor Mg PTA ([employer]) 02/25/15 1058 PT Last Visit PT Received On 02/25/15 Reason for Treatment Spinal surgery Requires PT Follow Up Yes Assistance Required 1 person Precautions Spinal Precautions Lumbar Other Comments Comments pt sitting @ EOB just returned from using BR but willing to participate complete d gait training and returned to sidelying in bed Cognition Overall Cognitive Status WFL Orientation Level Oriented Bed Mobility Sit to Sidelying Supervision Scooting Supervision Transfers Sit to/from Stand Standby assist Mobility Ambulation Assistance Standby assist Maximal Ambulation Distance (feet) 350 Total Ambulation Distance (feet) 350 Distance limited by? Patient's ability Pattern Alternating;Decreased dae Assistive Device Walker front wheeled Activity Tolerance Activity Tolerance Patient limited by pain Plan Treatment/Interventions Continue per Primary PT POC Progress Progressing toward goals Recommendation Recommendations Home Assist PT recommendations were discussed and verified with supervising PT. Kathy Aldrigde PA - 02/25/2015 9:53 AM PDTFormatting of this note might be different from the or iginal. Progress Notes by Kathy Ellis PA-C at 02/25/15 0953 Author: Kathy Ellis PA-C Service: Neurosurgery Author Type: Physician Chief Librarian Extension Department - Ce rtified Filed: 02/25/15 0958 Date of Service: 02/25/1553 Status: Signed Engineering Psychologist: Kathy Ellis PA-C (Physician Chief Librarian Extension Department - Certified) [facility] Service: Neurosurgery Progress Note Hospital Day: LOS: 1 day Post-Op Day: 1 Day Post-Op SUBJECTIVE Patient Summary: s/p removal of L4 hardware, laminectomy, TLIF, PSF L3-4 Events Overnight: Pain control issues Complaining of excruciating pain, only slept 3 hours last night. Pain only in back, slight radiation to left leg (hip), preop numbness/foot symptoms are improved. Was taking 30 mg o xycodone q 2 hours preop so we knew pain control was going to be difficult. Ambulated in nguyen llways with PT, doing IS, green catheter is out. Scheduled Medications docusate sodium 100 mg Oral BID levothyroxine 112 mcg Oral QAM AC oxyCODONE 40 mg Oral 2 times per day pregabalin 150 mg Oral 4x Daily Continuous Infusions 0.9 % NaCl with KCl 20 mEq 75 mL/hr at 02/24/15 1413 PRN Medications acetaminophen OR acetaminophen, diazepam OR diazepam, HYDROmorphone OR HYDROmor phone, HYDROmorphone, LORazepam, ondansetron OR ondansetron, oxyCODONE, saline lock IV - when tolerating PO fluids AND sodium chloride OBJECTIVE Vital Signs: BP 111/55 | Pulse 91 | Temp(Src) 99.3 F (37.4 C) (Oral) | Resp 22 | Ht 1.765 m (5' 9.5" ) | Wt 98 kg (216 lb 0.8 oz) | BMI 31.46 kg/m2 | SpO2 92% Temp: [97 F (36.1 C)-99.3 F (37.4 C)] 99.3 F (37.4 C) (02/25 754) BP: (77-124)/(46-73) 111/55 mmHg (02/25 754) Heart Rate: [74-95] 91 (02/25 754) Resp: [9-22] 22 (02/25 754) SpO2: [92 %-100 %] 92 % (02/25 754) FiO2 : [47 %-90 %] 90 % (02/24 1157) I&O Last 3 Shifts: 02/23 1900 - 02/25 0659 In: 6697 [P.O.:600; I.V.:6097] Out: 4350 [Urine:3650; Drains:300] Gen: awake, tearful, laying in bed appearing quite uncomfortable Neuro: Moves all extremities preop numbness in feet improving Drain output 170/130, serosanguinous output DATA X-ray C-arm Fluoro Over 1 Hour 2015 HISTORY: 50-year-old female, Intraoperative fixation. TECHNIQUE: 1. Imaging of the the lumbar spine via C-arm, 3 images. Prior study for review : None similar FINDINGS: 4 level fusion, posterior decompression lower lumbar spine, 3 level fusion from L4-S1 know n from the pre-operative examination. The longitudinal rods and been removed New fusion of the mid lumbar spine with disc prosthesis Alignment seems stable across modalities when com pared to the CT from May 2014, 2015 1. Revision of the 3 level posterior fusion and decompression of the lumbosacra l junction 2. What now likely represents a posterior L3-L4 fusion with disc prosthesis and posterior hardware Would correlate with surgical impression and intraoperative findings El ectronically signed by Alexey Haines MD on 2015 7:03 PM PROBLEM LIST Active Problems: * No active hospital problems. * ASSESSMENT & PLAN S/p removal of hardware L4, L3-4 TLIF, laminectomy, PSF - Pain control: increased 2 mg dilaudid q 1 hour as this is currently the only thing helpin g with pain. Also increased oxycontin to 60 mg BID - Continue supportive care - PT to mobilize - Encouraged IS usage - Drain to stay today Code Status: Full Code Kathy Ellis PA-C 02/25/2015 onversio n Transaction, Provider Unknown - 2015 3:48 PM PDTFormatting of this note might be di fferent from the original. Case Management by LORI Gr at 02/24/15 3192 Author: LORI Gr Service: (none) Author Type: Oven Unloader Filed: 02/24/15 1545 Date of Service: 02/24/15 1548 Status: Signed Engineering Psychologist: LORI Gr (Oven Unloader) CM met with pt for discharge planning. Pt is 50 years old and lives with her in a 1 -level home. Pt has 3 stairs at the main entrance. Pt has a tub-shower. Pt owns a shower oli ir and a walker. Pt's will assist with her daily living activities including persona l hygiene, grooming, dressing, feeding, cooking, transportation and ambulation. Pt had no re source concerns at this time. CM will continue to follow as needed. Discharge Plan: Home. Víctor MELENDEZ 02/24/15 1849 Discharge Planning Evaluation Admitting Diagnosis Lumbar surgery Readmission No Living Arrangements Spouse/significant other Support Systems Spouse/significant other Type of Residence Private residence House type House-1 story Steps to enter 3 Bathrooms on 1st Floor 1-Full Caregiver after Discharge Yes Relationship to Patient spouse Mental Status Oriented Anticipated Discharge Plan Post Acute Care Needs None at this time Resources Financial concerns No Transportation issues No Patient/Family concerns No Prescription Plan Yes Anticipated Disposition Facility Type Home Medicare Important Message (DEL) Not applicable Met with: Patient and discussed discharge planning, Pt is a 50 y.o., female Patient's PCP is: JHONNY GEIGER Patient's insurance: [employer] Health Coverage concerns: None Medication coverage/concerns: None Community resources utilized / needed: None Assistance in transportation: Not needed. Identification of any specific education / training: None Barriers to Discharge / Alternative housing needed: None Anticipated DCP: Home onver jennifer Tobiasaction, Provider Unknown - 2015 3:20 PM PDT Nurse Progress Note by Patience Luciano RN at 02/24/15 1520 Author: Patience Luciano RN Service: (none) Author Type: Registered Nurse Filed: 02/24/15 1537 Date of Service: 02/24/15 1520 Status: Signed Engineering Psychologist: Patience Luciano RN (Registered Nurse) CHARITO Chavez contacted regarding patients BP (79/55) and pain control. New orders received- 1L NS bolus and Ativan 0.5 mg po every 6 prn. Patience Luciano RN 2015 3:37 PM onver jennifer Tobiasaction, Provider Unknown - 2015 2:45 PM PDT Therapy Progress Note by Mdaelaine Daniels PT at 02/24/15 4515 Author: Madelaine Daniels PT Service: (none) Author Type: Physical Therapist Filed: 02/24/15 5270 Date of Service: 02/24/15 1445 Status: Signed Engineering Psychologist: Madelaine Daniels PT (Physical Therapist) 02/24/15 1445 PT Last Visit PT Received On 02/24/15 Reason for Treatment Spinal surgery (TLIF FUSION (N/A) - L3-4) Requires PT Follow Up Yes Follow up PT Only? No Focus for Next Treatment Bed Mobility Technique;Transfer Technique PT Eval/Reassessment Date 02/24/15 Assistance Required 1 person Commercial Real Estate Attorney Needed No Home Environment Type of Home Home one story (with basement ) Home Exterior Layout 1-3 steps (3 steps ) Home Interior Layout Lives on main level with bedroom/bathroom Bathroom Shower/Tub Tub/shower unit Bathroom Toilet Standard Bathroom Equipment Shower chair Bathroom Accessibility Accessible via walker Home Equipment Cane single point;Walker front wheeled Prior Function Level of Rogers Modified independent with functional mobility;Modified independent wi th ADLs;Modified independent with IADLs Lives With Spouse Receives Help From Family ADL Assistance Independent Home ADL's Independent RUE Assessment RUE Assessment WFL LUE Assessment LUE Assessment WFL RLE Assessment RLE Assessment X (3/5 from back pain ) LLE Assessment LLE Assessment X (3-/5 from back pain ) Cognition Overall Cognitive Status WFL Orientation Level Oriented Comments Pt very emotional and crying during session Assessment of Patient Status Assessment of Patient Status Decreased LE strength;Decreased functional mobility;Decreased ADL status;Decreased endurance;Precautions;Pain Prognosis Should progress with skilled therapy intervention Precautions Spinal Precautions Lumbar Other Precautions Fall risk Plan Treatment/Interventions Balance training;Bed mobility training;Family training;Gait trainin g;Provide HEP;Review HEP;Review precautions;Stair training;Therapeutic exercise;Transfer tra ining PT Frequency 5-7x/wk;Once per day;Twice a day Care Duration (# of days) 7 # of days Recommendation Recommendations Home Assist Equipment Recommended None (pt has FWW ) Barriers to Discharge Self-care Deficits Impacting Functional Rogers;Physical Deficit s Impacting Functional Rogers;Pain;Home Design (see comment) 02/24/15 1445 PT Last Visit PT Received On 02/24/15 Reason for Treatment Spinal surgery (TLIF FUSION (N/A) - L3-4) Requires PT Follow Up Yes Follow up PT Only? No Focus for Next Treatment Bed Mobility Technique;Transfer Technique PT Eval/Reassessment Date 02/24/15 Assistance Required 1 person Commercial Real Estate Attorney Needed No Precautions Spinal Precautions Lumbar Other Precautions Fall risk Other Comments Comments Eval/chart review performed in room, pt crying and emotional upon arrival, but hector ling to participated, supine BP 111/69, Ed pt on precautions, bed mobility modA, sit-stand t o FWW Radha. Pt able to ambulate in room 15ft, sit-supine modA, pt wanting to be in side lyin g at end of session, pillow between legs. Cognition Overall Cognitive Status WFL Orientation Level Oriented Comments Pt very emotional and crying during session Bed Mobility Rolling Minimal assist Sidelying to Sit Mod assist (BLEs OOB or trunk to upright) Sit to Sidelying Mod assist (BLEs into bed or trunk to lower) Scooting Minimal assist Transfers Sit to/from Stand Minimal assist (steadying/contact guard) Bed to/from Chair Minimal assist (steadying/contact guard) Mobility Ambulation Assistance Minimal assist Maximal Ambulation Distance (feet) 15ft Total Ambulation Distance (feet) 15ft Distance limited by? Patient's ability Pattern Alternating;Decreased dae Assistive Device Walker front wheeled Balance Balance Yes Static Standing Balance Static Standing-Balance Support Right upper extremity support;Left upper extremity support Static Standing-Level of Assistance Standby assist Static Standing-Comment/Duration standing EOB x 1 min Modalities Modalities Other therapy Other Therapy Ed on precautions Activity Tolerance Activity Tolerance Patient limited by fatigue;Patient limited by pain Nurse Made Aware Rn aware Plan Treatment/Interventions Balance training;Bed mobility training;Family training;Gait trainin g;Provide HEP;Review HEP;Review precautions;Stair training;Therapeutic exercise;Transfer tra ining PT Frequency 5-7x/wk;Once per day;Twice a day Care Duration (# of days) 7 # of days Recommendation Recommendations Home Assist Equipment Recommended None (pt has FWW ) Barriers to Discharge Self-care Deficits Impacting Functional Rogers;Physical Deficit s Impacting Functional Rogers;Pain;Home Design (see comment) docume nted in this encounter H&P Notes Ju Burr MD - 2015 6:50 AM PDTFormatting of this note might be different fr om the original. 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 female with significant past medical history of L4-S1 fusion in 08 01 in [place] by a Dr. Syed. She recovered well from the surgery, but has noticed increas ed pain over the past several years. She feels as though pain has gotten dramatically worse since May 2014. She was bedridden for 2 weeks in May secondary to pain. The pain is located in her low, low back (right above "the crack of my bottom") and radiates to her left posterior thigh, ending at her knee. The pain feels like shooting, electrical "zingers". Sj arroyo feels a "cord" in her left posterior thigh. She cannot drive long distances because it agg ravates her pain. The pain is worse with leaning backward, even as much as in a baptism pew, in the early AM and middle of the night, and standing/sitting/lying down too long and better occasionally with ice. Leaning forward does not help her pain. Her biggest complaint is reid t of a sensation where "ants are crawling", a numbness/tingling sensation on her left>right dorsal foot throughout the arch. She has difficulty walking because of her foot pain. This g oes away somewhat when she lays on her back and brings her heels in as close as she can to h er hips. She is taking Lyrica for this with some relief. She also feels a "stone bruise" and the heel of her left foot. She reports weakness in her entire left leg. She has fallen marck ral times because her left leg won't swing through. She reports bowel or bladder symptoms in cluding bladder hesitancy and difficulty finishing her voiding. This has been present for se veral years, and she has seen a finishing pan operator about it. She had basic labs drawn and it was d iscovered she had hepatitis C and she was consumed with that for a year. She denies bowel in continence. 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 She is taking Lyrica, oxycodone (up to 30mg every 2 hours) and Valium for the pain with some relief. Her current pain level is 7, at its worst at 10, and best at 4. She quit smoking November 03. REVIEW OF SYSTEMS Review of Systems Constitutional: Positive for activity change and appetite change. Gastrointestinal: Negative for bowel incontinence Genitourinary: Positive for frequency and difficulty urinating. + for left vaginal lip numbness occasionally Musculoskeletal: Positive for back pain and gait problem. Neurological: Positive for weakness and numbness. All other systems reviewed and are negative. Past Medical History Diagnosis Date GERD (gastroesophageal reflux disease) Hepatitis C Pneumonia History of stomach ulcers Other chronic pain Joint pain Neuromuscular disorder (HCC) Thyroid disease Past Surgical History Procedure Laterality Date Lumbar fusion Knee surgery Hysterectomy Spine surgery Unlisted procedure arthroscopy Abdominal surgery Appendectomy Cholecystectomy Hardware present Tonsillectomy Allergies Allergen Reactions Iodinated Diagnostic Agents Hives Iodine Solution [Povidone Iodine] Hives and Rash Penicillins Hives and Rash Aspirin Nausea and Vomiting Codeine Nausea and Vomiting No current facility-administered medications on file prior to encounter. Current Outpatient Prescriptions on File Prior to Encounter Medication Sig Dispense Refill diazepam (VALIUM) 5 MG tablet Take 5 mg by mouth every 6 (six) hours as needed for Anxi ety. oxyCODONE (ROXICODONE) 15 MG immediate release tablet Take 15 mg by mouth every 4 (four ) hours as needed for Pain. pregabalin (LYRICA) 75 MG capsule Take 75 mg by mouth 4 (four) times daily. 150mg Family History Problem Relation Age of Onset Hypertension Cancer Heart disease Cancer Aneurysm Stroke Other (see comments) BRAIN TUMOR History Social History Marital Status: Spouse Name: N/A Number of Children: 2 Years of Education: N/A Occupational History RETIRED Social History Main Topics Smoking status: Former Smoker -- 1.00 packs/day for 15 years Quit date: 10/20/2014 Smokeless tobacco: Never Used Alcohol Use: No Drug Use: No Sexual Activity: Not on file Other Topics Concern Not on file Social History Narrative PHYSICAL EXAM Vital Signs: BP 148/69 | Pulse 85 | Temp(Src) 98.3 F (36.8 C) (Temporal) | Resp 16 | Ht 1.765 m (5' 9.5") | Wt 98 kg (216 lb 0.8 oz) | BMI 31.46 kg/m2 | SpO2 96% Physical Exam Constitutional: She appears well-developed and well-nourished. Neck: Normal range of motion. Cardiovascular: Normal rate and regular rhythm. Pulmonary/Chest: Effort normal and breath sounds normal. Abdominal: Soft. Bowel sounds are normal. Skin: Skin is warm and dry. Alert and oriented x 3. Moves LE with good strength. Midline posterior lumbar scar. Sensation decreased plantar surfaces. Reflexes 2+ knees and ankles. Very poor ROM of her back. Antalgic gait. DATA Imaging: Her MRI, CT, flexion-extension x-rays were reviewed. There is moderate stenosis now above t he fusion at L3-4 with severe facet arthropathy and fluid in the facet joints. She has a spo ndylolisthesis now at L3-4 in flexion which moves to about 8 mm and reduces on her supine im aging MRI. The CT shows solid fusion L4-S1. The screws at L5 and S1 are long anteriorly and the left L 5 screw abuts the left iliac vein. CBC: Lab Results Component Value Date WBC 8.51 02/18/2015 RBC 4.73 02/18/2015 HGB 14.6 02/18/2015 HCT 44.6 02/18/2015 MCV 94.3 02/18/2015 MCH 30.9 02/18/2015 MCHC 32.7 02/18/2015 RDW 42.9 02/18/2015 PLT 227 02/18/2015 MPV 8.8 02/18/2015 DIFFTYPE AUTOMATED 02/18/2015 BMP: Lab Results Component Value Date NA 136 02/18/2015 K 4.0 02/18/2015 CL 102 02/18/2015 CO2 26 02/18/2015 ANIONGAP 12 02/18/2015 GLUF 122* 02/18/2015 BUN 13 02/18/2015 CREATININE 0.66 02/18/2015 BCR 20 02/18/2015 CA 9.8 02/18/2015 EGFR >60 02/18/2015 PT/INR: Lab Results Component Value Date INR 1.0 02/18/2015 PTT: Lab Results Component Value Date APTT 28 02/18/2015 [APTT} PROBLEM LIST Patient Active Problem List Diagnosis Lumbar stenosis Spondylolisthesis, acquired ASSESSMENT & PLAN 49-year-old woman with history of prior L4-S1 fusion in 2004, now with adjacent segment deg eneration and stenosis with instability at L3-4. This is a common problem that is seen adjac ent to fusions. Other than living with it as it is, I think her only option at this point wo uld be to extend the fusion and decompression up to L3-4. We did talk about the fact that th is would likely help overall with her pain but not relieve all of it. She has had chronic pa in for many years and I would expect some of those symptoms to continue. She takes large dos es of oxycodone and this will likely have to increase even postop before attempting to wean it at all. She also would be at risk for further degeneration and fusions even higher. We will either link in to the old system or try to remove it. The operative notes and records from 2004 did not identify the pedicle screw system. We discussed the specific risks of the fusion procedure including bleeding, infection, inju ry to the nervous structures, csf leak, screw malposition, medical complications, pseudoarth rosis, worsened pain, adjacent level degeneration, need for further surgery, even . Th e procedure and its indications, the alternative treatment options including non-treatment, the anticipated benefits of the procedure and alternatives, and the possible risks and compl ications of the procedure are addressed with the patient and all questions were answered. T he patient wishes to proceed with surgical intervention and informed consent was obtained. Primary Care Physician: JHONNY Burr MD 2015 documented in this encounter Miscellaneous Notes Plan of Care - Conversion Transaction, Provider Unknown - 02/27/2015 11:00 AM PDT Plan of Care by Dalila Peralta RN at 02/27/15 1100 Author: Dalila Peralta RN Service: (none) Author Type: Registered Nurse Filed: 02/27/15 1203 Date of Service: 02/27/15 1100 Status: Signed Engineering Psychologist: Dalila Peralta RN (Registered Nurse) Problem: Safety Goal: Patient will be injury free during hospitalization Assess and monitor vitals signs, neurological status including level of consciousness and o rientation. Assess patient s risk for falls and implement fall prevention plan of care and interventions per hospital policy. Ensure arm band on, uncluttered walking paths in room, adequate room lighting, call light a nd overbed table within reach, bed in low position, wheels locked, side rails up per policy, and non-skid footwear provided. Outcome: Progressing Instructed pt. To use call light when needing assistance. lan o f Care - Conversion Transaction, Provider Unknown - 02/27/2015 11:00 AM PDTFormatting of dane s note might be different from the original. Plan of Care by Dalila Peralta RN at 02/27/15 1100 Author: Dalila Peralta RN Service: (none) Author Type: Registered Nurse Filed: 02/27/15 1206 Date of Service: 02/27/15 1100 Status: Signed Engineering Psychologist: Dalila Peralta RN (Registered Nurse) Problem: Pain Goal: Patient s pain/discomfort is manageable Assess and monitor patient s pain using appropriate pain scale. Collaborate with interdis ciplinary team and initiate plan and interventions as ordered. Re-assess patient s pain le shelbi approximately 1-2 hours after pain management intervention. Premedicate as needed. Outcome: Progressing Encouraged pt. To inform nursing staff when experiencing pain in effort to keep pain at al erable level to pt. lan o f Care - Conversion Transaction, Provider Unknown - 02/26/2015 10:58 PM PDTFormatting of thi s note might be different from the original. Plan of Care by Madelaine Duran RN at 02/26/152257 Author: Madelaine Duran RN Service: (none) Author Type: Registered Nurse Filed: 02/26/152257 Date of Service: 02/26/152257 Status: Signed Engineering Psychologist: Madelaine Duran RN (Registered Nurse) Problem: Pain Goal: Patient s pain/discomfort is manageable Assess and monitor patient s pain using appropriate pain scale. Collaborate with interdis ciplinary team and initiate plan and interventions as ordered. Re-assess patient s pain le shelbi approximately 1-2 hours after pain management intervention. Premedicate as needed. Outcome: Progressing Patient states pain is under control. Will continue to monitor and provide medication as w ell as comfort measures as needed. Problem: Safety Goal: Patient will be injury free during hospitalization Assess and monitor vitals signs, neurological status including level of consciousness and o rientation. Assess patient s risk for falls and implement fall prevention plan of care and interventions per hospital policy. Ensure arm band on, uncluttered walking paths in room, adequate room lighting, call light a nd overbed table within reach, bed in low position, wheels locked, side rails up per policy, and non-skid footwear provided. Outcome: Progressing Patient will remain free from falls during hospital visit. Bed in lowest position. Room f ree from clutter. Call light within reach. Patient uses call light appropriately. lan o f Care - Conversion Transaction, Provider Unknown - 02/26/2015 10:14 AM PDTFormatting of thi s note might be different from the original. Plan of Care by Ana Gaytan RN at 02/26/15 1014 Author: Ana Gaytan RN Service: (none) Author Type: Registered Nurse Filed: 02/26/15 1014 Date of Service: 02/26/15 101 Status: Signed Engineering Psychologist: Ana Gaytan RN (Registered Nurse) Problem: Pain Goal: Patient s pain/discomfort is manageable Assess and monitor patient s pain using appropriate pain scale. Collaborate with interdis ciplinary team and initiate plan and interventions as ordered. Re-assess patient s pain le shelbi approximately 1-2 hours after pain management intervention. Premedicate as needed. Outcome: Progressing Patient states pain is under control. Will continue to monitor and provide medication as we ll as comfort measures as needed. Problem: Safety Goal: Patient will be injury free during hospitalization Assess and monitor vitals signs, neurological status including level of consciousness and o rientation. Assess patient s risk for falls and implement fall prevention plan of care and interventions per hospital policy. Ensure arm band on, uncluttered walking paths in room, adequate room lighting, call light a nd overbed table within reach, bed in low position, wheels locked, side rails up per policy, and non-skid footwear provided. Outcome: Progressing Patient will remain free from falls during hospital visit. Bed in lowest position. Room liban e from clutter. Call light within reach. Patient uses call light appropriately. No Falls During Hospital Stay: Encouraged patient to use call light when wanting to mobilize Bed in lowest position Call-light within reach Optimal Respiratory Status post op: Encouraged patient to use IS 10x/hr while awake Encouraged ambulation in hallways TID minimum Encouraged transfers to chair lan o f Care - Conversion Transaction, Provider Unknown - 02/25/2015 10:56 PM PDTFormatting of thi s note might be different from the original. Plan of Care by Madelaine Duran RN at 02/25/152255 Author: Madelaine Duran RN Service: (none) Author Type: Registered Nurse Filed: 02/25/152255 Date of Service: 02/25/152255 Status: Signed Engineering Psychologist: Madelaine Duran RN (Registered Nurse) Problem: Pain Goal: Patient s pain/discomfort is manageable Assess and monitor patient s pain using appropriate pain scale. Collaborate with interdis ciplinary team and initiate plan and interventions as ordered. Re-assess patient s pain le shelbi approximately 1-2 hours after pain management intervention. Premedicate as needed. Outcome: Progressing Patient states her pain is not undercontrol. Will continue to monitor and provide medicati on as well as comfort measures as needed. Problem: Safety Goal: Patient will be injury free during hospitalization Assess and monitor vitals signs, neurological status including level of consciousness and o rientation. Assess patient s risk for falls and implement fall prevention plan of care and interventions per hospital policy. Ensure arm band on, uncluttered walking paths in room, adequate room lighting, call light a nd overbed table within reach, bed in low position, wheels locked, side rails up per policy, and non-skid footwear provided. Outcome: Progressing Patient will remain free from falls during hospital visit. Bed in lowest position. Room f ree from clutter. Call light within reach. Patient uses call light appropriately. lan o f Care - Kathy Ellis PA - 02/25/2015 4:08 PM PDTFormatting of this note might be differ ent from the original. Plan of Care by Kathy Ellis PA-C at 02/25/15 1915 Author: Kathy Ellis PA-C Service: Neurosurgery Author Type: Physician Chief Librarian Extension Department - Ce rtified Filed: 02/25/15 1616 Date of Service: 02/25/151607 Status: Signed Engineering Psychologist: Kathy Ellis PA-C (Physician Chief Librarian Extension Department - Certified) Patient in much better spirits this afternoon after increasing the frequency of her dilaudi d. Not tearful, states she has felt so much better since this AM when I saw her. Ambulated in hallway twice, using IS. Continue supportive care Kathy Ellis PA-C lan of C are - Conversion Transaction, Provider Unknown - 2015 3:57 PM PDTFormatting of this n ote might be different from the original. Plan of Care by Patience Luciano RN at 02/24/15 7750 Author: Patience Luciano RN Service: (none) Author Type: Registered Nurse Filed: 02/24/15 8337 Date of Service: 02/24/15 584 Status: Signed Engineering Psychologist: Patience Luciano RN (Registered Nurse) Patient will be injury free during hospitalization Progressing Call light in place. Instructed patient to use when assistance is needed Patience Luciano RN 2015 3:57 PM p Not e - Ju Burr MD - 2015 1:08 PM PDT Op Note by Ju Burr MD at 02/24/15 0526 Author: Ju Brur MD Service: Neurosurgery Author Type: Physician Filed: 03/04/15 0905 Date of Service: 02/24/15 1308 Status: Addendum Engineering Psychologist: Ju Burr MD (Physician) Related Notes: Original Note by Ju Burr MD (Physician) filed at 02/25/15 0817 [facility] OPERATIVE NOTE NEUROSURGERY DEPT Name: Ana M Ware Age: 50 y.o. Todays Date: 2015 Time: 1:08 PM Procedure: Extension of fusion to L3-4/laminectomy (Prior L4-S1 fusion). 1. Arthrodesis, posterior interbody technique, including laminectomy and discectomy to pre pare interspace, TLIF L3-4 2. Arthrodesis, posterolateral technique L3-4 3. Posterior instrumentation, Globus Creo L3-4 4. Application of intervertebral cage, Globus Rise L3-4 5. Complete laminectomy, bilateral facetectomies, bilateral foraminotomies L3-4 6. Removal of old screws at L4. 7. Aspiration iliac crest bone marrow left side 8. Neuromonitoring 9. 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 Adjacent segment degeneratio n with unstable spondylolisthesis ~13mm in flexion above her prior fusion. Estimated Blood Loss: 400cc Drains: Hemovac Complications: None PROCEDURE DESCRIPTION: The patient was brought to the operating room and a timeout performed just prior to initiat ing the procedure verifying the correct patient, operative site/levels, films, and allergies . Preoperative antibiotics were administered. The patient underwent general endotracheal ane sthesia. A Green catheter was placed by nursing staff. Neuromonitoring electrodes were plac ed for free running EMG and pedicle screw stimulation. The patient was then turned prone onto the Igor table with all rolle pressure points padde d appropriately including the eyes. The arms were placed overhead and padded. The lumbar reg ion was prepped and draped in the usual sterile fashion. Her prior midline lumbar scar was m arked and infiltrated with 1% lidocaine with epinephrine. The midline incision was made and carried down through the subcutaneous layer. The fascia was identified and incised. The lumb ar paraspinal muscles were stripped in a subperiosteal fashion exposing the spinous process of L3 and the old hardware at L4-S1. This locking caps were a star drive head and these wer e removed as well as the mick. The screw itself was some type of fork system and so I had to place a small mick with the cap in the head to spin out the screws at L4. The right S1 scre w head was broken off from the screw itself. It took quite a bit of time to be able to spin out the screws at L4 and I elected to leave the old screws in at L5 and S1 as I felt this w as going to add extensive unnecessary time to the surgery and I was concerned anyway about r emoving the screws here which extend beyond the anterior cortical margin of L5 and S1. The screws at L4 that were removed measured approximately 6.5 x 50mm. I went ahead with the screw replacement at L4 and the new screws at L3. I used the Globus Creo system for instrumentation. The procedure was identical for both screws at L3. An init ial forestry pilot hole was drilled with the [employer] Chance AM 8 drill bit. The straight pedicle probe was then used to navigate down the pedicle and into the vertebral body. This was confirmed with fluoroscopy. The probe was removed and the tract palpated with a ball tip feeler probe to e nsure there was no break out. The hole was then tapped and the appropriate size screw placed . The screw was stimulated and threshold values were acceptable. The other L3 screw was plac ed in identical fashion. I used 6.5 x 50mm screws at L3 bilaterally. I then upsized the scr ews at L4 to 7.5 x 50mm screws. The screws were all confirmed to be in satisfactory position based on biplanar fluoroscopy. Each of the screws had good purchase. Once the screws were in good position, I went ahead with the decompression and preparation for the interbody cage at L3-4. The spinous process of L3 and the remaining L4 spinous proc ess were removed with the Le[place]ell rongeur. The intervening ligamentum flavum was carefully mobilized from the dura and resected with Kerrison punches. This was widened out to the edge of the thecal sac and nerve roots. A complete L3 laminectomy and bilateral L3-4 facetectom ies were carried out. I used the [employer] Chance AM-8 to drill across the pars on each side remov ing the inferior articular processes completely and the upper part of the superior articular processes to provide a wide transforaminal approach to the L3-4 disc space. The exiting ne rve roots were decompressed and bilateral foraminotomies performed. The transiting nerve ro ots were decompressed from underneath the ledge of the superior articular facets. The dural sac was widely decompressed at this level. The bone was saved for bone graft material. The L3-4 disc space was then incised from both sides and a bilateral discectomy performed. Various sized disc space pricilla, curettes, and pituitary forceps were used. The endplates were curetted to bleeding bone. Various dilators and trials were utilized until the appropr iate interbody cage was selected. I planned to use the Globus Rise expandable titanium cage. A Jamshidi type needle was used to aspirate bone marrow from the left iliac crest through the same incision. This was mixed with the bone from the IC graft chamber allograft and the patient s local autograft bone. I used mostly autograft locally to pack into the disc spa ce. The interbody cage was then impacted into the disc space bilaterally taking care to prot ect the dural sac and nerve roots. The interbody cage was then confirmed to be in good posit ion based on AP and lateral fluoroscopy. This was expanded up to an appropriate fit of the disc space. Lordotic rods were then placed into the screw heads bilaterally at L3-4. These were secured with the locking screw caps. These were torqued and gentle compression applied to the cage. The remaining posterolateral bony elements at L3-4 were decorticated to bleeding cancellous bone using the Midas Chance. The remaining bone graft material was placed out into the posteri or lateral gutters and around the hardware for posterolateral fusion. The wound was irrigate d with antibiotic irrigation. Thrombin soaked Gelfoam was placed over the exposed dura. One gram of vancomycin powder was sprinkled into the wound. A medium Hemovac drain was placed i n the epidural space and taken out through a separate stab incision. This was secured with a 2-0 nylon suture. The wound was then closed in layers. The fascia was closed with interrupt ed 0-Vicryl sutures. The subcutaneous layer and dermis were closed with interrupted 2-0 and 3-0 Vicryl sutures. Alphonso were used to close the skin. Bacitracin ointment and a sterile d ressing were applied. All counts were correct at the end of the procedure. There were no i ntraoperative complications. The patient was extubated and taken to the recovery room in goo d condition. The physician cable splicer assistant was present throughout the entire case from positioning to closure and helped with exposure, retraction, suctioning, and suturing. The cable splicer assistant surgeon LAWRENCE was necessary for this procedure. Disposition: Pt moved to PACU/recovery room. Condition: Stable and satisfactory condition. Sponge and Needle Count: Correct Ju Burr MD has created this entry using Leiyoo Recognition software an d Dynis. The entry has been reviewed and there may still exist sound alike word error s. p Note - Micah Burr MD - 2015 1:08 PM PDTFormatting of this note might be different from the silvestre delma. Brief Op Note by Ju Burr MD at 02/24/15 1308 Author: Ju Burr MD Service: Neurosurgery Author Type: Physician Filed: 02/24/15 1308 Date of Service: 02/24/151307 Status: Signed Engineering Psychologist: Ju Burr MD (Physician) [facility] Service: Neurosurgery Brief Op Note See complete electronic operative report for full details. Ju Burr MD 2015 documented in this encounter Plan of Treatment Not on filedocumented as of this encounter Procedures + +--------+ + + + | Procedure Name | Priori | Date/Time | Associated Diagnosis | Comments | | | ty | | | | + +--------+ + + + | FL C ARM > 1 HOUR | Routin | 2015 | | Results for this | | | e | 11:27 AM | | procedure are in the | | | | PDT | | results section. | + +--------+ + + + | TYPE AND SCREEN | Routin | 2015 | | Results for this | | | e | 6:18 AM | | procedure are in the | | | | PDT | | results section. | + +--------+ + + + documented in this encounter Results FL C-Arm > 1 Hour (2015 11:27 AM PDT) + + | Specimen | + + | | + + + + + | Impressions | Performed At | + + + | 1. Revision of the 3 level posterior fusion and decompression of | | | the lumbosacral junction 2. What now likely represents a posterior | | | L3-L4 fusion with disc prosthesis and posterior hardware Would | | | correlate with surgical impression and intraoperative findings | | | | | + + + + + + | Narrative | Performed At | + + + | HISTORY: 50-year-old female, Intraoperative fixation. TECHNIQUE: | | | 1. Imaging of the the lumbar spine via C-arm, 3 images. Prior | | | study for review : None similar FINDINGS: 4 level fusion, | | | posterior decompression lower lumbar spine, 3 level fusion from L4-S1 | | | known from the pre-operative examination. The longitudinal rods and | | | been removed New fusion of the mid lumbar spine with disc | | | prosthesis Alignment seems stable across modalities when compared | | | to the CT from May 2014, | | + + + + --------+ | Procedure Note | + --------+ | Nico, Rad Conversion - 04/06/2019 6:12 AM PDT HISTORY: 50-year-old female, | | Intraoperative fixation. TECHNIQUE: 1. Imaging of the the lumbar spine via C-arm, 3 | | images. Prior study for review : None similar FINDINGS: 4 level fusion, posterior | | decompression lower lumbar spine, 3 level fusion from L4-S1 known from the pre-operative | | examination. The longitudinal rods and been removed New fusion of the mid lumbar spine | | with disc prosthesis Alignment seems stable across modalities when compared to the CT | | from May 2014, IMPRESSION: 1. Revision of the 3 level posterior fusion and | | decompression of the lumbosacral junction 2. What now likely represents a posterior | | L3-L4 fusion with disc prosthesis and posterior hardware Would correlate with surgical | | impression and intraoperative findings Electronically signed by Alexey Haines MD on | | 2015 7:03 PM | | | |New fusion of the mid lumbar spine with disc prosthesis | | | |Alignment seems stable across modalities when compared to the CT from May 2014, | | | |IMPRESSION: | | | |1. Revision of the 3 level posterior fusion and decompression of the lumbosacral junction | | | |2. What now likely represents a posterior L3-L4 fusion with disc prosthesis and posterior h ardware | | | |Would correlate with surgical impression and intraoperative findings | | | | | + --------+ Type and Screen (2015 6:18 AM PDT) + + + + + + [...] | | EXTERNAL | | | | KM;[address] | | LAB | | | | Blvd;[place] [address] | | | | + + + + + + | Antibody | NEGATIVE | | EXTERNAL | | | Screen | | | LAB | | + + + + + + | Antibody | Testing performed at | | EXTERNAL | | | Screen | [facility] | | LAB | | | | [address];[place] [address] | | | | + + + + + + | BB BAND | [id number] | | EXTERNAL | | | | | | LAB | | + + + + + + | BB BAND | Testing performed at | | EXTERNAL | | | | [facility] | | LAB | | | | [address];[place] [address] | | | | + + + [...] + | Diagnosis | + + | Spinal stenosis, lumbar region, without neurogenic claudication | + + | Acquired spondylolisthesis | + + documented in this encounter
--- OUTSIDE RECORDS SUMMARY | ~2020-03-16 | XMS | Encounter Summary ---
Demographics + + + | Address | [address] | | | [place] [address] | + + + | Home Phone | | + + + | Preferred Language | Unknown | + + + | Marital Status | | + + + | Confucianist Affiliation | [id number] | + + + | Race | Unknown | + + + | Ethnic Group | Unknown | + + + Author + + + | Author | [facility] | | | and [place] | + + + | Organization | [facility] | | | and [place] [...] [place], [place] | | | | | [address] | | + + + + + Care Team Providers + +------+ + | Care Clinical Laboratory Manager Name | Role | Phone | + +------+ + PCP | Unavailable | + +------+ + Encounter Details +--------+ + + + + | Date | Type | Department | Care Team | Description | +--------+ + + + + | 07/29/ | Hospital | [facility] | Murali Vanegas | | | 2003 - | Encounter | MED [facility] | MD [address] | | | | [address] | [address] | | | 08/28/ | | [place] [address] | [place] [address] | | | 2004 | | [phone] | [phone] | | | | | | | [...]
--- OUTSIDE RECORDS SUMMARY | 2020-03-16 20:12 | XMS ---
PreManage Notification: KEIKO FISH Security Rn Ostomy Events No recent Security Events currently on file [facility]ITERIA MET - [facility] ROB Starks PHONE: [phone] [place] has no Care Guidelines for this patient. Bhavin VISIT COUNT (12 MO.) [address] [facility] TOTAL 1 NOTE: Visits indicate total known visits. ED/UCC VISIT TRACKING (12 MO.) 03/16/2020 20:10 ERIKA Grover [place] TYPE: Emergency COMPLAINT: - FEVER/LOC INPATIENT VISIT TRACKING (12 MO.) No inpatient visits to display in this time frame [id number]
[2020-03-16] MEDS ORDERED: OSTERA TABLET1 EACH PO (20:40)
== END 2020-03-17 00:25 | disposition home or self-care (01) ==
LOC: ED 20:09
DX: K52.9 Noninfective gastroenteritis and colitis, unspecified (principal); E03.9 Hypothyroidism, unspecified; F17.200 Nicotine dependence, unspecified, uncomplicated; Z91.041 Radiographic dye allergy status; Z88.0 Allergy status to penicillin; Z91.09 Other allergy status, other than to drugs and biological substances; Z88.5 Allergy status to narcotic agent; Z88.6 Allergy status to analgesic agent; Z79.899 Other long term (current) drug therapy
CPT/HCPCS: 71045; 80053; 81001; 83605; 85025; 93005; 93010; 96361; 96374; 96375; 99284-25; C9803; J1170; J2405; J2550; J7030; J7121; U0002

== ENCOUNTER 2020-07-24 11:55 | Day surgery (SDC) | payer BC ==
[~2020-07-24] VITALS: Ht 175.3 cm; Wt 79.5 kg
[~2020-07-24 11:55] MED LIST changes: +OSTERA TABLET1 EACH PO
--- NOTE | 2020-07-24 13:56 | NUR ---
07/24/20 1356 Annie Maher 1347- PT ARRIVES TO PACU NONAROUSABLE TO NOXIOUS STIMULI WITH AN OPA IN PLACE. RESP EVEN AND UNLABORED. OXYGEN SAT HIGH 90'S TO 100% ON 8L VIA MASK. 1349- PT AROUSABLE TO NOXIOUS STIMULI. OPA REMOVED BY KEVIN MIR CRNA. 1351- OXYGEN TITRATED OFF. 1352- PT REQUESTING TO SIT ON THE EDGE OF THE BED FOR HER BACK DISCOMFORT. PT STATES THIS HELPS. DENIES ANY DIZZINESS, NAUSEA, OR ABD PAIN.
[2020-07-25] MEDS ORDERED: OXYCODON-ACETA1 EAC2 PO ×2 (10:27)
[2020-07-25] MEDS ORDERED: IBUPROFEN600 MG PO ×2 (10:27)
[2020-07-25] MEDS ORDERED: ACETAMINOPHEN500 MG PO ×2 (10:28)
--- NOTE | 2020-07-25 11:54 | OR ---
[facility] [address] [place], [place] [address] Signed DATE OF OPERATION: 07/24/2020 SURGEON: Kevin Weber MD PREOPERATIVE DIAGNOSES: 1. Weight loss over 18 months (largely recovered). 2. Left inguinal hernia (bilateral with left inguinal hernia largest and most symptomatic). POSTOPERATIVE DIAGNOSIS: Polyps x4. PROCEDURE: Total colonoscopy to cecum with cold snare polypectomy x3 and cold morcellation polypectomy x1. ANESTHESIA: Intravenous sedation, propofol infusion; Kevin Gaspar CRNA. INDICATIONS: This 55-year-old white woman is a patient Dr. Moore and had suffered a significant weight loss over 18 months. She has largely recovered her weight. She did not have rectal bleeding. She was referred for colonoscopy on the basis of evaluation for weight loss problem. She has had colonoscopy and upper endoscopy in 2017. On physical exam, it is noted that she has a left inguinal hernia, which is relatively large and easily reducible, but is painful. Additional examination shows she likely has a small right inguinal hernia as well, though it has no symptoms and was not known to her. She is admitted at this time to undergo colonoscopy on the basis of her weight loss issue, which was recommended by Dr. Moore. Additionally, a left inguinal hernia repair will be performed soon. As regard to the colonoscopy, the risks of bleeding, infection, perforation, and so forth were reviewed with her. She understands and wished to proceed. FINDINGS: The prep was not great. It was adequate with irrigation, but it was frustrating on that basis. The patient understood that her prep would be subadequate and I suspect she did not follow the fiber recommendation too closely. In any case with diligence and a lot of irrigation, good examination was undertaken. There were 4 polyps identified in total. All were excised. Three excised with cold snare technique and one with cold Electronically Signed By: KEVIN WEBER MD 07/25/20 1154 PATIENT NAME: KEIKO FISH OPERATIVE REPORT DATE OF : 61 REPORT #: [id number] PHYSICIAN: KEVIN WEBER MD PCP: KHLOE MOORE MD REPORT IS CONFIDENTIAL AND NOT TO BE RELEASED WITHOUT AUTHORIZATION [facility] [address] [place], [place] [address] Signed morcellation technique. DESCRIPTION OF PROCEDURE: The patient was brought to the endoscopy suite and placed in lateral decubitus position given intravenous sedation with propofol infusional technique under the direction of the weather forecaster, given her advanced ASA classification of 3. Digital rectal examination was normal. An Olympus video colonoscope was passed in the rectum and manipulated throughout the colon ultimately intubating the cecum itself. Irrigation was undertaken as needed as there were some areas that were less well prepped and others. In the cecum was a sessile polyp about a centimeter in size, which was excised with cold snare technique, passed for pathology. Withdrawal of scope allowed for further irrigation and examination and approximately 80 cm from the anal verge was a smaller probable adenomatous polyp. This was excised with cold morcellation technique. Further withdrawal showed another similar such polyp at 50 cm. This was excised with cold snare technique. Polyp was lost in the milieu of the residual colonic fluid. Despite efforts, it was never really retrieved. A trap had been placed on the endoscopy device, but review of the contents did not ever identified the polyp and therefore was reconsidered loss, but not suspicious in appearance clinically. Further withdrawal showed a small polyp at 30 cm, which was excised with cold snare technique and retrieved and passed for pathology as well. Notably, it was the largest of the polyps. Retroflexed view of the rectum showed no other abnormalities. Scope was removed and the patient was taken to the recovery room in good condition. CONCLUDING DIAGNOSIS: Polyps x4. PLAN: Recommend repeat colonoscopy in 1 to 2 years if adenomas are identified. Inguinal hernia repair will be anticipated tomorrow so as to maintain her status with COVID-19 testing preoperatively. MD MONIQUE Coulter/ANASTASIYAL /[id number] Electronically Signed By: KEVIN WEBER MD 07/25/20 1154 PATIENT NAME: KEIKO FISH OPERATIVE REPORT DATE OF : 61 REPORT #: [id number] PHYSICIAN: KEVIN WEBER MD PCP: KHLOE MOORE MD REPORT IS CONFIDENTIAL AND NOT TO BE RELEASED WITHOUT AUTHORIZATION [facility] [address] [place], [place] [address] Signed cc: Khloe Moore MD Copies: KHLOE MOORE MD ~ Electronically Signed By: KEVIN WEBER MD 07/25/20 1154 PATIENT NAME: KEKIO FISH OPERATIVE REPORT DATE OF : 61 REPORT #: [id number] PHYSICIAN: KEVIN WEBER MD PCP: KHLOE MOORE MD REPORT IS CONFIDENTIAL AND NOT TO BE RELEASED WITHOUT AUTHORIZATION
--- NOTE | 2020-07-28 16:51 | PATH ---
[facility] [address] [place], [place] [address] Signed SPECIMEN(S): A CECAL POLYP SPECIMEN(S): B COLON POLYP AT 80 CM SPECIMEN(S): C COLON POLYP AT 50 CM SPECIMEN SOURCE: A. CECAL POLYP B. COLON POLYP AT 80 CM C. COLON POLYP AT 50 CM CLINICAL HISTORY: History of polyps. DX: Polyps. MICROSCOPIC DESCRIPTION: Histologic sections of all submitted blocks are examined by light microscopy. These findings, together with the gross examination, support the pathologic diagnosis. FINAL PATHOLOGIC DIAGNOSIS: A. Colon, cecum, polyp, polypectomy: - Tubular adenoma. - Negative for high-grade dysplasia or malignancy. B. Colon, polyp at 80 cm, polypectomy: - Colonic mucosa with no histopathologic abnormality. - Negative for dysplasia or malignancy. C. Colon, polyp at 50 cm, polypectomy: - Fragments of tubular adenoma. - Negative for high-grade dysplasia or malignancy. COMMENT: Regarding specimen B: Multiple additional deeper levels were examined. NAL:cml:C2NR GROSS DESCRIPTION: Three specimens are received in three containers, labeled "An aM Ware." A. The specimen, labeled "Ana M Ware, #1," and designated on the requisition "cecum polyp," is received in formalin and consists of one huntley soft tissue fragment that measures 0.9 cm in greatest dimension. The specimen is inked, trisected, and entirely submitted in cassette (A1). B. The specimen, labeled "Ana M Ware, #2," and designated on the requisition "colon polyp at 80 cm," is received in formalin and consists of one huntley soft tissue fragment that measures 0.2 cm in PATIENT NAME: ANA M WARE PATHOLOGY DATE OF : 61 REPORT #: [id number] PHYSICIAN: AIDAN PATHOLOGY PCP: KHLOE MOORE MD REPORT IS CONFIDENTIAL AND NOT TO BE RELEASED WITHOUT AUTHORIZATION [facility] [address] [place], [place] [address] Signed greatest dimension. The specimen is entirely submitted in cassette (B1). C. The specimen, labeled "Ana M Ware, #4," and designated on the requisition "colon polyp at 50 cm," is received in formalin and consists of two huntley soft tissue fragments that measure 0.3 to 0.9 cm in greatest dimension. The largest tissue fragment is inked and sectioned. The specimen is entirely submitted in cassette (C1). FB (under the direct supervision of a pathologist) The Gross Description was prepared using a voice recognition system. The report was reviewed for accuracy; however, sound-alike word errors, addition and/or deletions may occur. If there is any question about this report, please contact Client Services. PERFORMING LABORATORY: The technical component was performed by [employer], [address] [place] [id number] (Patient Financial Advocate: Shala Urbano MD; CLIA# [id number]). [facility] [address] [address] (CLIA# [id number]). Diagnostician: Love Yoon MD Pathologist Electronically Signed 07/28/2020 Copies: ~ PATIENT NAME: ANA M WARE PATHOLOGY DATE OF : 61 REPORT #: [id number] PHYSICIAN: AIDAN PATHOLOGY PCP: KHLOE MOORE MD REPORT IS CONFIDENTIAL AND NOT TO BE RELEASED WITHOUT AUTHORIZATION
== END 2020-07-24 14:20 | disposition home or self-care (01) ==
LOC: OPS 11:55 → DS 11:55 → OPS 13:00
PROVIDERS: ATTEND Surgery
PROC: 0DBE8ZZ Excision of Large Intestine, Via Natural or Artificial Opening Endoscopic (ICD-10-PCS; 2020-07-24)
PROC: 0DBH8ZZ Excision of Cecum, Via Natural or Artificial Opening Endoscopic (ICD-10-PCS; principal; 2020-07-24 13:00)
DX: D12.0 Benign neoplasm of cecum (principal); D12.6 Benign neoplasm of colon, unspecified; K21.9 Gastro-esophageal reflux disease without esophagitis; E03.9 Hypothyroidism, unspecified; F17.210 Nicotine dependence, cigarettes, uncomplicated; Z88.6 Allergy status to analgesic agent; Z88.5 Allergy status to narcotic agent; Z91.041 Radiographic dye allergy status; Z79.899 Other long term (current) drug therapy; Z86.010 Personal history of colon polyps
CPT/HCPCS: J2704; J7121

== ENCOUNTER 2020-07-25 07:25 | Day surgery (SDC) | payer BC ==
--- NOTE | 2020-07-25 08:42 | NUR ---
PT HAD JUST ENTERED HER RM, WAITING FOR RN TO COME. PT IS ALERT, ORIENTED AND IN GOOD SPIRITS. THANKED ME FOR COMING BY, GAVE BLESSING AND WILL FOLLOW
--- NOTE | 2020-07-25 10:08 | NUR ---
07/25/20 Blair8 Annie Maher 1002- PT ARRIVES TO PACU NONAROUSABLE TO NOXIOUS STIMULI WITH AN OPA IN PLACE. RESP EVEN AND UNLABORED. OXYGEN SAT HIGH 90'S TO 100% ON 6L VIA MASK.
[2020-07-25] MEDS ORDERED: OXYCODON-ACETA1 EAC2 PO ×2 (10:27)
[2020-07-25] MEDS ORDERED: IBUPROFEN600 MG PO ×2 (10:27)
[2020-07-25] MEDS ORDERED: ACETAMINOPHEN500 MG PO ×2 (10:28)
--- NOTE | 2020-07-28 14:25 | OR ---
[facility] [address] [place], [place] [address] Signed DATE OF OPERATION: 07/25/2020 SURGEON: Kevin Weber MD PREOPERATIVE DIAGNOSIS: Left inguinal hernia. POSTOPERATIVE DIAGNOSIS: Left inguinal hernia. PROCEDURE: Repair of left inguinal hernia with implantation of Prolene mesh underlay technique. ANESTHESIA: General LMA, Kevin Gaspar CRNA, and local 10 mL of 0.25% Marcaine with epinephrine. INDICATIONS: This 55-year-old white woman underwent colonoscopy by me yesterday. She was found to have several polyps. She has developed a left inguinal hernia over time, which is reducible, it was symptomatic. She is here to undergo repair, understand the risks of bleeding, infection, recurrence, and other unforeseen complications. Notably, her COVID test two days ago was negative, and she is symptom free currently. FINDINGS: Rather bulky hernia was noted. It would be considered an indirect type hernia. The hernia sac was invaginated into the properitoneal space. There was likely a sliding component with this. I did not open the hernia sac, simply reduced it to the properitoneal space. The vestigial cord (round ligament) was excised. This allowed for implantation of Prolene mesh in an underlay technique affording good repair. DESCRIPTION OF PROCEDURE: The patient was brought to the operating room, given a general anesthetic by LMA technique. Preoperative antibiotic Ancef was given. Sequential compression device stockings were used and heparin subcutaneously administered. The abdomen was prepared with chlorhexidine solution and draped sterilely. Palpation in a Pfannenstiel type incision demonstrated proximity of the hernia to that incision, therefore the previous incision was used. Dissection was carried through the subcutaneous tissue on the left side, identifying the external oblique. A bulky herniated area was noted. The external oblique was incised along its fibers, reflected laterally. An ilioinguinal nerve branch was identified and out of harm's way. The vestigial cord was adherent to Electronically Signed By: KEVIN WEBER MD 07/25/20 1154 PATIENT NAME: KEIKO FISH OPERATIVE REPORT DATE OF : 61 REPORT #: [id number] PHYSICIAN: KEVIN WEBER MD PCP: KHLOE MOORE MD REPORT IS CONFIDENTIAL AND NOT TO BE RELEASED WITHOUT AUTHORIZATION [facility] [address] [place], [place] [address] Signed somewhat bulky herniated hernia sac. It appeared to be an indirect sac. The sac was freed from the surrounding soft tissue of the floor of the canal. The vestigial cord was dissected free from the hernia sac as well and proximal ligation undertaken near the origin of the deep inferior epigastric vessels. It was ligated with a 2-0 silk tie, and the cord dissected free distally and excised from the region of the pubic tubercle, it was not sent for pathology. The herniated area and defect were well identified and could easily be invaginated to the properitoneal space. Rather than excising the sac and so forth, it was simply invaginated and the attenuated fibers of the fascia over transversalis were incised with electrocautery. Properitoneal fat was bluntly . The segment of Prolene mesh was cut to an elliptical configuration and secured in an underlay technique with interrupted 2-0 Prolene sutures. Special care was taken laterally to avoid any incorporation of the ilioinguinal nerve branch, which was easily identified and avoided. A 10 mL of 0.25% Marcaine with epinephrine was injected locally. The external oblique was reapproximated with running 2-0 Vicryl suture. Essie layer was reapproximated with interrupted 2-0 Vicryl and skin closed with running subcuticular 3-0 Vicryl. Steri-Strips were applied as was a silver sponge dressing. She tolerated the procedure well, was ultimately extubated and transferred to the recovery room in good condition, having suffered no complications. COMPLICATION: Sponge, needle, and counts reported as correct x3. MD MONIQUE Coulter/ANASTASIYAL /[id number] cc: Khloe Moore MD Copies: KHLOE MOORE MD ~ Electronically Signed By: KEVIN WEBER MD 07/25/20 1154 PATIENT NAME: KEIKO FISH OPERATIVE REPORT DATE OF : 61 REPORT #: [id number] PHYSICIAN: KEVIN WEBER MD PCP: KHLOE MOORE MD REPORT IS CONFIDENTIAL AND NOT TO BE RELEASED WITHOUT AUTHORIZATION
== END 2020-07-25 11:55 | disposition home or self-care (01) ==
LOC: OPS 07:25 → DS 07:25 → OPS 08:15 → DS 08:15 → OPS 11:55
PROVIDERS: ATTEND Surgery
PROC: 0YU60JZ Supplement Left Inguinal Region with Synthetic Substitute, Open Approach (ICD-10-PCS; principal; 2020-07-25 08:15)
DX: K40.90 Unilateral inguinal hernia, without obstruction or gangrene, not specified as recurrent (principal); K21.9 Gastro-esophageal reflux disease without esophagitis; E03.9 Hypothyroidism, unspecified; F17.210 Nicotine dependence, cigarettes, uncomplicated; Z88.6 Allergy status to analgesic agent; Z88.5 Allergy status to narcotic agent; Z91.041 Radiographic dye allergy status; Z79.899 Other long term (current) drug therapy
CPT/HCPCS: 00830; A9270; C1781; J0461; J0690; J1100; J1644; J1885; J2250; J2405; J2704; J2765; J3010; J7121

== ENCOUNTER 2022-12-11 18:30 | Emergency (ER) | payer BC, MEDICARE, OTHER ==
[~2022-12-11] VITALS: Ht 175.3 cm; Wt 77.1 kg
[~2022-12-11 18:30] MED LIST changes: +ACETAMINOPHEN500 MG PO; +ONDANSETRON ODT8 MG PO; +PREDNISONE20 MG PO; +SYMBICORT 16010.2 GM INH; +VENTOLIN HFA18 GM; +VITAMIN D21250 MCG
--- OUTSIDE RECORDS SUMMARY | 2022-12-11 18:34 | XMS ---
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 PHONE: [phone] FELY, Family Medicine 01/17/2019-Formerly [facility] ROB Lemon PHONE: [phone] KHLOE MOORE Internal Medicine 03/17/2020-Current PHONE: Unknown Allen has no Care Guidelines for this patient. Care History Medical/Surgical 03/17/2020 [facility] - Patient is currently established with [facility]. If patient is seen in the ED during business hours. Please contact [facility] at [facility]. Care Recommendation: If this patient has had 5 or more Emergency Department visits in the last 12 months.\T\nbsp; Patient will require education on the scope and purpose of the ED as an acute care provider not a Primary Care Provider and should not be utilized for chronic conditions.\T\nbsp; These are guidelines and the provider should exercise clinical judgment when providing care. 03/17/2020 [facility] Patient seen after clinic hours.\T\nbsp; No follow up with PCP at this time. E.D. VISIT COUNT (12 MO.) 1 [facility] TOTAL 1 NOTE: Visits indicate total known visits. ED/UCC VISIT TRACKING (12 MO.) 12/11/2022 18:[address] [facility] [place] TYPE: Emergency COMPLAINT: - CONSTIPATION LAST 9 DAYS INPATIENT VISIT TRACKING (12 MO.) No inpatient visits to display in this time frame [email or web address]
[2022-12-11] MEDS ORDERED: CONSTULOSE10 GM/15 M PO (19:28)
[2022-12-11 20:01] VITALS: BP 139/96
== END 2022-12-11 20:02 | disposition home or self-care (01) ==
LOC: ED 18:30
DX: K59.03 Drug induced constipation (principal); T40.2X5A Adverse effect of other opioids, initial encounter; F17.200 Nicotine dependence, unspecified, uncomplicated; Z91.013 Allergy to seafood; Z91.041 Radiographic dye allergy status; Z88.0 Allergy status to penicillin; Z88.5 Allergy status to narcotic agent; Z88.8 Allergy status to other drugs, medicaments and biological substances
CPT/HCPCS: 74018; J2212